=== PATIENT | female | born 1950 | race Caucasian/White ===

== ENCOUNTER → 2016-09-10 | Outpatient (CLI) | payer MEDICARE, OTHER ==
[~2016-09-10] MED LIST: ACETAMINOPHEN PO; ACETAMINOPHEN650 M1 PO; ADULTS' DAILY1 EACH PO; ALPRAZOLAM PO; ALPRAZOLAM0.25 MG PO; ALPRAZOLAM0.5 MG PO; AMIODARONE PO; AMLODIPINE BESY10 MG PO; ANEXSIA 7.5/3251 TA1 PO; ASCORBIC ACID500 M2 PO; ASPIRIN; ASPIRIN81 M1 PO; ASPIRIN81 M2 PO; ASPIRIN81 MG PO; AUGMENTIN PO; BACTRIM DS TABL1 TA1 PO; BACTROBAN22 GM TP; BAYER CHEWABLE81 MG PO; BENICAR PO; BENZONATATE; BENZONATATE PO; BENZONATATE200 MG PO; BISACODYL10 MG/SUP3 RC; BRILINTA90 MG PO; BUMETANIDE1 MG PO; BUMEX1 MG PO; BUMEX2 MG PO; CARVEDILOL12.5 MG PO; CITRUCEL500 MG PO; CLOPIDOGREL75 MG PO; COLACE PO; COMBIVENT U/D3 M1 INH; CORDARONE200 M1 PO; COREG PO; COREG12.5 MG PO; COREG3.125 MG PO; CORTISPORIN-TC10 ML OT; COUGH SYRU100 MG/5 M PO; COUMADIN PO; COUMADIN5 MG PO; COZAAR PO; COZAAR100 MG PO; DIFLUCAN PO; DOXYCYCLINE HY100 M1 PO; EFFEXOR37.5 MG PO; EFFEXOR75 M2 PO; ELIQUIS2.5 MG PO; FERROUS SULFATE PO; FLEXERIL10 M1 PO; FLOMAX0.4 M1 DOB; FLOMAX0.4 M1 PO; FLUCONAZOLE150 M1 PO; FUROSEMIDE40 MG PO; GLUCOTROL PO; GLYBURIDE PO; GLYNASE PO; HUMULIN 70/30 PE3 ML SUBQ; HUMULIN 70/30 V10 ML SUBQ; HUMULIN 70100 UNIT/1 SQ; HUMULIN 70100 UNIT/1 SUBQ; HUMULIN 70100 UNITS/ SQ; HUMULIN 70100 UNITS/ SUBQ; HYDRALAZINE HCL25 MG PO; HYDRALAZINE HCL50 MG PO; HYDROCODON-ACE1 EAC1 PO; HYDROCODON-ACE1 EAC5 PO; HYDROCODON-ACE1 EAC7 PO; HYDROCODON-ACE1 EAC9 PO; HYDROCODONE/APA1 T16 PO; IBUPROFEN800 MG PO; IMDUR-ER30 M1 PO; IMDUR-ER60 M1 PO; IMDUR-ER60 M3 PO; IMDUR-ER60 MG PO; INVANZ1 G/VIA1 IV; ISORDIL10 MG PO; ISOSORBIDE DINI10 MG PO; K-DUR20 ME1 PO; KEFLEX500 MG PO; LACTAID3000 UNI1 PO; LANTUS100 U/M1 SQ; LANTUS100 U/ML SUBQ; LASIX; LASIX PO; LASIX20 MG PO; LEVAQUIN250 MG PO; LEVEMIR SUBQ; LEVEMIR100 UNITS/ SUBQ; LIDODERM30 EA TOP; LIPITOR PO; LIPITOR20 MG PO; LIPITOR40 MG PO; LISINOPRIL; LISINOPRIL-HCTZ1 T19 PO; LISINOPRIL10 MG PO; LISINOPRIL20 MG PO; LOPRESSOR PO; LORTAB 5/500 TA1 TA1 PO; LORTAB 7.51 TAB; LORTAB PO; LOSARTAN POTAS100 MG; LOVENOX SUBQ; MACROBID 100 M100 MG PO; MACROBID100 M1 PO; MACROBID100 MG PO; MAGIC MOUTH WASH PO; MEDI-MECLIZINE25 M1 PO; MERREM500 MG INJ; METOPROLOL SUCC25 MG PO; MICONAZOLE; MICRONASE2.5 MG PO; MICRONASE5 M1 PO; MILK OF MAGNESIA PO; MIRAPEX PO; MIRAPEX0.125 MG PO; MULTI-DAY VITAM1 TAB PO; MYCOSTATIN POWD30 GM EXT; NEURONTIN; NEURONTIN100 MG PO; NITROBID PO; NITROGLYGERIN0.4 MG; NITROGLYGERIN0.4 MG SL; NORCO 10-325 TA1 TAB PO; NORVASC PO; NORVASC10 MG PO; NOVOLIN 70100 UNITS/ INJ; NOVOLIN 70100 UNITS/ SUBQ; NOVOLOG100 U/ML; NOVOLOG100 U/ML SUBQ; NOVOLOG100 UNITS/ SUBQ; NOVOLOG7030 SUBQ; NYSTATIN CREAM TOP; OMNICEF250 MG/5 M PO; OMNICEF300 MG PO; PAIN RELIEF650 MG PO; PANTOPRAZOLE SO40 MG PO; PEPCID AC20 M2 PO; PERCOCET PO; PHENERGAN; PHENERGAN12.5 MG; PHENERGAN25 MG PO; PHOSLO667 M1 PO; PLAVIX PO; PRAVACHOL20 MG PO; PREDNISONE PO; PRILOSEC40 MG PO; PROTONIX PO; PROTONIX20 MG PO; PYRIDIUM100 MG PO; RANEXA1000 MG PO; RANEXA500 MG PO; RENEXA; RISPERDAL0.5 M1 PO; RISPERIDONE PO; RITALIN10 MG PO; ROBAXIN500 MG PO; SKELAXIN PO; SOD BICARBONATE PO; SYMBICORT 160/4.6 GM INH; SYMBICORT INH; TESSALON PERLE100 M1 PO; TOPROL XL; TOPROL XL PO; TYLENOL325 M1 PO; UREA TP; VICODIN 5-3001 EACH PO; VICODIN 5/1 TAB 5/50 PO; VICODIN 5/500 T1 TAB PO; VICODIN HP 10-1 EACH PO; VICODIN PO; VITAMIN D1000 UNI2 PO; VITAMIN D250000 UNIT PO; VOLTAREN50 MG PO; VOLTAREN75 MG PO; XANAX0.5 M1 DOB; XANAX0.5 M1 PO; XANAX0.5 MG PO; ZESTRIL10 MG PO; ZOCOR20 MG PO; ZOFRAN ODT4 MG; ZOFRAN ODT4 MG PO; ZOFRAN PO; ZOFRANODT PO; ZOVIRAX800 MG PO; ZYVOX600 MG PO; [UNRECOGNIZED DRUG - CODE] PO; [UNRECOGNIZED DRUG - OTHER] TP
[2016-09-10 13:30] LABS: HEMATOCRIT 30.3 % (35.0-45.0); HEMOGLOBIN 9.7 gm/dL (12.0-16.0); MEAN CELL VOLUME 83.5 FL (83-96); MEAN CORPUSCULAR HEMOGLOBIN 26.7 PG (28-34); MEAN PLATELET VOLUME 7.8 FL (6.5-11.5); RED BLOOD COUNT 3.63 X10e (3.90-5.30); RED CELL DISTRIBUTION WIDTH 16.2 % (11.0-15.5); WHITE BLOOD COUNT 3.7 X10e3 (4.0-10.5)
[2016-09-10 13:46] LABS: CALCIUM SERUM 9.2 mg/dL (8.4-10.2); CREATININE SERUM 3.5 mg/dL (0.6-1.4); GLOM FILT RATE Estimated 12.9 mL/min (>60); POTASSIUM 4.5 mmol/L (3.5-5.1)
== END | disposition home or self-care (01) ==
LOC: SLAB 12:57
PROVIDERS: Surgery Vascular Surgery
DX: N18.3 Chronic kidney disease, stage 3 (moderate) (principal)
CPT/HCPCS: 36415; 80048; 85027; 85730

== ENCOUNTER 2016-09-17 05:44 | Inpatient (IN) | payer OTHER ==
--- NOTE | ~2016-09-17 | DS ---
Unit #: [id number] #: [id number] Patient: MICHELLE DUNHAM [id number] [facility]. [place], [place] [address] [id number] I MR#: [id number] NAME: MICHELLE DUNHAM ROOM: 469 Age: 65 Sex: F Admission Date: 09/17/2016 : 1950 Discharge Date: Attending Physician: Chidi Acosta M.D. Referring Physician: Jorge Luis Gooden M.D. Primary Care Physician: Kaiser Veliz M.D. DISCHARGE SUMMARY ADDENDUM Kindly note there is a discharge summary dictated by Dr. Craig Barton on the of this month and this is an addendum to the discharge summary. FINAL DIAGNOSES In addition to the final diagnoses: 1. Status post cardiopulmonary arrest, possibly secondary to protamine reaction. 2. Status post (1) filter placement in the right upper extremity. 3. Acute gouty arthritis involving the right knee. 4. Musculoskeletal chest pain. 5. Congestive heart failure, systolic. 6. Anemia. 7. End stage renal disease on hemodialysis. She (2) to have done the hemodialysis. PROCEDURES DONE Status post Shiley catheter placement for hemodialysis, status post AV fistula placement. CONSULTANTS 1. Dr. Peña. 2. Dr. Jorge Luis Gooden. 3. Dr. Fortino Sun. 4. Dr. Delgado. 5. Dr. Cameron Briceño. HOSPITAL COURSE Please note, this is an addendum to the discharge summary. In these last few days, patient complained of pain in the right knee. She was seen by orthopedic services. They recommended no further intervention and she was started empirically on steroids and consequently her pain improved. She started on Uloric acid and, clinically, the pain has improved. She got hemodialysis done. She got a Shiley catheter placed and she was dialyzed. Dr. Peña saw patient for renal issues. She also had an outpatient hemodialysis appointment sent up. She will be discharged home with home health care. She is instructed to follow up with vascular surgery, renal, and primary care as an outpatient. She also complains of having swelling in her right arm since the surgery done. Requested her to keep her right arm elevated. PHYSICAL EXAMINATION On the day of the discharge: Unit #: [id number] #: [id number] Patient: MICHELLE DUNHAM VITAL SIGNS: Temperature 98.5, pulse rate 60, respirations 18, and blood pressure 132/57. GENERAL APPEARANCE: Patient is alert, oriented x3, and lying in the bed. No respiratory distress. HEENT: Normocephalic and atraumatic. No icterus. PERRLA. Extraocular movements intact. NECK: Supple. No JVD. HEART: S1 and S2 regular rate and rhythm. CHEST: Bilateral equal air entry. Clear to auscultation. ABDOMEN: Soft and nontender. EXTREMITIES: Right below-knee amputation. Right arm has 1+ edema. DISCHARGE MEDICATIONS Her discharge medications include: 1. Lipitor 20 mg daily. 2. Insulin 70/30 twenty units twice a day. 3. Pepcid 20 mg daily. 4. Hydrocodone/Tylenol 10/325 one tablet p.o. q.4-6 p.r.n. for pain. 5. Symbicort 160/4.5 mcg 2 puffs twice a day. 6. Flomax 0.4 mg daily. 7. Amiodarone 200 mg daily. 8. Eliquis 2.5 mg twice a day. 9. Xanax 0.5 mg p.o. p.r.n. for anxiety. Kindly note I am not giving any new prescription. 10. Coreg 12.5 mg twice a day. 11. PhosLo 667 mg p.o. 3 times a day. 12. Imdur 10 mg p.o. twice a day. 13. Uloric acid 40 mg p.o. daily. DISCHARGE INSTRUCTIONS Patient is instructed to follow up with primary care and with cardiology in 1-2 weeks. TOTAL TIME SPENT ON THE DISCHARGE Thirty-five minutes. Dictated by... Chidi Acosta M.D. TITA/kofi TD: 09/28/2016 06:21 JOB #: [id number] DISCHARGE SUMMARY Page 1 of 1 X X DISCHARGE SUMMARY
--- NOTE | ~2016-09-17 | CR72 ---
[facility] A Service of [facility] RADIOLOGY TEXT RESULTS PATIENT: MICHELLE DUNHAM LOCATION: [place] [id number] : [birth year] UNIT #: [id number] AGE: [address]: Pilar Barton MD SEX: F ORDER DR: [id number] [facility] [address] [place], [place] [address] [id number] I MR#: [id number] Acc #: [id number] NAME: MICHELLE DUNHAM : 1950 SEX: F STUDY DATE/TIME: 09/18/2016 4:28 UNIT: [facility] ROOM: [facility] STUDY DESCRIPTION: CR Chest Single View Portable Attending Physician: Jorge Luis Gooden M.D. Referring Physician: Jorge Luis Gooden M.D. Ordering Physician: Analisa Delgado M.D. Primary Care Physician: Kaiser Veliz M.D. MEDICAL IMAGING REPORT This report is preliminary unless electronic signature is present EXAM Portable chest INDICATIONS Respiratory failure follow up. PROCEDURE Frontal view chest. COMPARISON 09/17/2016 FINDINGS The ET tube is stable. No new dense opacity. No pneumothorax. IMPRESSION Stable. Dictated by... Jeronimo Santana M.D. THIS IS AN ELECTRONICALLY VERIFIED REPORT Jeronimo Santana M.D. at 09/18/2016 10:24 PM DEVIKA/ted TD: 09/18/2016 06:19 JOB #: [id number] MEDICAL IMAGING REPORT Page 1 of 1 COPY
--- NOTE | ~2016-09-17 | CR71 ---
[facility] A Service of [facility] RADIOLOGY TEXT RESULTS PATIENT: MICHELLE DUNHAM LOCATION: [facility] 468 : [birth year] UNIT #: [id number] AGE: [address]: Chidi Acosta MD SEX: F ORDER DR: [id number] [facility] [address] [facility] [place] [facility]. [place], [place] [address] [id number] I MR#: [id number] Acc #: [id number] NAME: MICHELLE DUNHAM : 1950 SEX: F STUDY DATE/TIME: 09/25/2016 9:53 UNIT: [facility] ROOM: [facility] STUDY DESCRIPTION: CR Chest Single View Attending Physician: Chidi Acosta M.D. Referring Physician: Jorge Luis Gooden M.D. Ordering Physician: Manuel Rausch M.D. Primary Care Physician: Kaiser Veliz M.D. MEDICAL IMAGING REPORT This report is preliminary unless electronic signature is present EXAM AP portable chest. DATE 09/25/2016 at 0953 HISTORY 65-year-old female status post tunneled catheter placement today. Shortness of breath today. COMPARISON AP portable chest, 09/21/2016. FINDINGS Low volume inspiration. Bibasilar airspace disease not thought to be significant changed. Stable cardiomegaly with central vascular congestion. Right IJ approach tunneled catheter distal tip extends to the right atrial level. No pneumothorax is visible. Left chest wall pacemaker leads appear unchanged. Degenerative changes in the lumbar spine. IMPRESSION 1. Right IJ approach tunneled catheter placement with the tip projecting to the right atrial level. No visible pneumothorax. 2. Bibasilar atelectasis or infiltrates, cardiomegaly and central vascular congestion, without significant change from 09/21/2016. Dictated by... Ligia Capone M.D. THIS IS AN ELECTRONICALLY VERIFIED REPORT [facility] A Service of [facility] RADIOLOGY TEXT RESULTS PATIENT: MICHELLE DUNHAM LOCATION: [facility] 468 : [birth year] UNIT #: [id number] AGE: [address]: Chidi Acosta MD SEX: F ORDER DR: Ligia Capone M.D. at 09/26/2016 7:03 AM STEVENSON/rosi TD: 09/25/2016 12:29 JOB #: [id number] MEDICAL IMAGING REPORT Page 1 of 1 COPY
--- NOTE | ~2016-09-17 | EKG ---
PATIENT: MICHELLE DUNHAM UNIT #: [id number] Ventricular Rate: 63 BPM Atrial Rate: 63 BPM P-R Interval: 220 ms QRS Duration: 106 ms Q-T Interval: 474 ms QTC Calculation(Bezet): 485 ms P [place]: 49 degrees Calculated R [place]: 15 degrees Calculated T [place]: 44 degrees Diagnosis Line: Sinus rhythm with 1st degree A-V block Diagnosis Line: Lateral infarct (cited on or before 24-MAR-2016) Diagnosis Line: Abnormal ECG Diagnosis Line: When compared with ECG of 24-MAR-2016 05:48, Diagnosis Line: No significant change was found Diagnosis Line: Confirmed by CALVIN MCCLOUD MD ([id number]) on 09/17/2016 Diagnosis Line: 11:31:20 PM INTERPRETING MD: AME MARR
--- NOTE | ~2016-09-17 | DS ---
Unit #: [id number] #: [id number] Patient: MICHELLE DUNHAM Pilar Barton MD DISCHARGE SUMMARY
--- NOTE | ~2016-09-17 | CR208 ---
[facility] A Service of [facility] RADIOLOGY TEXT RESULTS PATIENT: MICHELLE DUNHAM LOCATION: [facility] 468-01 : [birth year] UNIT #: [id number] AGE: [address]: Chidi Acosta MD SEX: F ORDER DR: [id number] [facility] [address] [place], [place] [address] [id number] I MR#: [id number] Acc #: [id number] NAME: MICHELLE DUNHAM : 1950 SEX: F STUDY DATE/TIME: 09/22/2016 12:08 UNIT: [facility] ROOM: [facility] STUDY DESCRIPTION: CR Ribs Ar 3 Views Attending Physician: Pilar Barton M.D. Referring Physician: Jorge Luis Gooden M.D. Ordering Physician: Pilar Barton M.D. Primary Care Physician: Kaiser Veliz M.D. MEDICAL IMAGING REPORT This report is preliminary unless electronic signature is present EXAM Bilateral rib views dated 09/22/2016. COMPARISON Single view of the chest dated 09/21/2016. HISTORY Bilateral rib pain following injury on Friday. Patient had CPR done on her. FINDINGS Frontal view of the chest demonstrates mild linear subsegmental atelectasis/infiltrate at the junction of the left vzr-eg-qoqoa lung zone and in the left lower lung zone. Linear subsegmental atelectasis is noted extending from the right hilum laterally in the right midlung zone, stable. There is some prominence of interstitial markings in the lungs bilaterally. Stable. Pacemaker is in the left mid chest. There is stable mild cardiomediastinal silhouette enlargement suggestive of cardiomegaly/pericardial effusion. Bilateral 2 views of the ribs were obtained using 9 images. Somewhat technically limited while in some images the pacemaker and other extrinsic objects are overlying the ribs, limiting evaluation. In the visualized portions of the ribs, no obvious acute displaced fracture is seen. IMPRESSION 1. No significant interval change in the cardiopulmonary status when compared to the prior study. 2. The 2 views of bilateral ribs were obtained using various images. Given the overlying wires and pacemaker, evaluation of the underlying ribs is limited. Some of the images are also technically limited. After giving allowances to those, no obvious acute displaced fracture is discerned in the visualized portions. [facility] A Service of [facility] RADIOLOGY TEXT RESULTS PATIENT: MICHELLE DUNHAM LOCATION: [facility] [address] : [birth year] UNIT #: [id number] AGE: [address]: Chidi Acosta MD SEX: F ORDER DR: Dictated by... Fermin Nicole M.D. THIS IS AN ELECTRONICALLY VERIFIED REPORT Fermin Nicole M.D. at 09/23/2016 2:59 PM CPR/psc TD: 09/22/2016 17:05 JOB #: [id number] MEDICAL IMAGING REPORT Page 1 of 1 COPY
--- NOTE | ~2016-09-17 | A ---
[facility] Nutrition Therapy DATE: 09/27/16 Patient: MICHELLE COMBS Physician: DAVID Address: [address] [place] [address] ROAD Room/Bed: [address] [place] [address], Zip: [place] [address] Admit Date: 09/17/16 Date of : [birth year] Height: 5 9 Weight: 218 99 NUTRITIONAL ASSESSMENT: REASON: LOS 65 yo female admitted for CKD PMH: CAD, HTN, dyslipidemia, DM, COPD, peripheral vascular disease, s/p R below knee and L forefoot amputations Anthropometrics: Ht: 5'9" Wt: 99.1 kg (218#) BMI: 32.3 Labs: Gluc 126, BUN 71, Creat 3.6, Phos 6.8, GFR 12.5 Meds: Phoslo, Pepcid, Lipitor, Novolin, Zofran I/O & Bowel function: 1130/550, last BM 09/17 Skin Integrity: Abrasion (buttock), bruise (R hip, L thigh, back, BUE), amputations, closed surgical incision (RFA-fistula) Edema: R arm generalized Assessment: Chart reviewed, events noted. Pt received hemodialysis today. Pt reported a fair appetite, stating she didn't eat anything yesterday and ate ~35% of meals today. Pt unable to report any weight loss. RD international specialist provided written and verbal CKD diet education. RD international specialist discussed importance of adequate protein and calorie intake. Pt verbalized understanding. Pt agreed to Nepro shakes BID. Pt had no diet questions at this time. See recommendations below. Dx: Inadequate protein intake RT current clinical condition AEB consuming ~35% of meals. Intervention: 1. Diet education 2. Nepro shakes BID 3. Renal diet 4. MVI Monitoring, Evaluation and Goals: 1. PO intake; consume >75% of meals and supplements 2. Labs; WNL 3. Skin; promote healing 4. GI; promote regular GI function [facility] Nutrition Therapy DATE: 09/27/16 Patient: MICHELLE COMBS Physician: DAVID Address: [address] [place] [address] ROAD Room/Bed: [address] [place] [address], Zip: [place] [address] Admit Date: 09/17/16 Date of : [birth year] Height: 5 9 Weight: 218 99 Recommendations: 1. Please order vanilla Nepro BID w/ meals. 2. Encourage adequate protein/calorie intake and compliance to renal diet. 3. Add multivitamin to pt's current medication regimen to promote skin healing. 4. Optimize pt's bowel regimen d/t pt's last BM 09/17. Pt is at a mild nutritional risk. RD will f/u per protocol. Respectfully, Valentine Emery, Cutting Table Operator Mauro Kat MS, RD, LD Mauro Kat MS, RD, LD [facility] cc: client file
--- NOTE | ~2016-09-17 | OR ---
Unit #: [id number] #: [id number] Patient: MICHELLE DUNHAM [id number] [place], [place] [address] [id number] I MR#: [id number] NAME: MICHELLE DUNHAM ROOM: 468 Date of Procedure: 09/25/2016 Admission Date: 09/17/2016 Surgeon: Manuel Rausch M.D. : 1950 Attending Physician: Chidi Acosta M.D. Referring Physician: Jorge Luis Gooden M.D. Primary Care Physician: Kaiser Veliz M.D. OPERATIVE REPORT PREOPERATIVE DIAGNOSIS Worsening chronic renal failure, requiring dialysis. POSTOPERATIVE DIAGNOSIS Worsening chronic renal failure, requiring dialysis. PROCEDURES PERFORMED 1. Ultrasound-guided cannulation, right internal jugular vein. 2. Placement of right internal jugular vein 27 cm NextStep tunneled dialysis catheter with fluoroscopy. ANESTHESIA MAC. COMPLICATIONS None. ESTIMATED BLOOD LOSS 5 mL. INDICATIONS FOR PROCEDURE The patient is a 65-year-old female with a history of chronic renal failure, who has immature right arm fistula, not yet ready for dialysis access. She is recommended placement of a tunneled dialysis catheter and was told of the planned procedure including the risks, benefits, complications, and alternatives, and she does wish to proceed. DESCRIPTION OF PROCEDURE The patient was taken to the operating room, placed on the operating table in supine position. Following MAC anesthesia, the patient's bilateral neck and chest wall were prepped and draped in normal standard manner. Using ultrasound, the right internal jugular vein was identified and 1% lidocaine was infused over the vein. Under ultrasound guidance, the vein was cannulated with the access needle and a starter wire was then passed into the inferior vena cava and confirmed on fluoroscopy. A stab incision was created at the wire exit site. The tract was serially dilated with the final sheath dilator being placed. A 27 cm NextStep tunneled dialysis catheter was then placed with its tip positioned to the SVC-atrial junction confirmed on fluoroscopy. The proposed tunnel tract was identified and anesthetized with lidocaine. A stab incision was created in the right chest wall and a curved metal tunneler was then passed and the catheter was brought subcutaneously. The catheter was cut to length Unit #: [id number] #: [id number] Patient: DUNHAM,MICHELLE and the Y-adapter was applied and secured. Inflow and outflow ports were aspirated and flushed easily and then heparin locked with concentrated heparin. The catheter was secured to the chest wall with 3-0 nylon suture and the base of the right neck incision was closed with interrupted subcuticular 4-0 Monocryl suture. The incisions were washed and dressings were applied. The procedure was terminated. The patient tolerated the procedure well and was taken to the recovery room in stable condition. All needle, sponge, and instrument counts were correct at the end of the case. Dictated by... Jesse Munoz/debra TD: 09/25/2016 22:37 JOB #: [id number] OPERATIVE REPORT Page 1 of 1 X Manuel Rausch MD X PROCEDURE OPERATIVE NOTE
--- NOTE | ~2016-09-17 | CO ---
Unit #: [id number] #: [id number] Patient: PATRICIA DUNHAM [id number] [facility]. [place], [place] [address] [id number] I MR#: [id number] NAME: PATRICIA DUNHAM ROOM: [facility] Age: 65 Sex: F Admission Date: 09/17/2016 : 1950 Attending Physician: Pilar Barton M.D. Primary Care Physician: Kaiser Veliz M.D. Consultation Date: 09/17/2016 CONSULTATION REPORT REASON FOR CONSULT Renal insufficiency. HISTORY Thank you very much for asking us to see this patient in consultation. Ms. Patricia Dunham is a 65-year-old female with history of chronic kidney disease stage 4 with baseline creatinine around 3 or so who I see in the office, as well as intermittent hospitalizations. She underwent a right arm AV fistula and apparently had been reversed with protamine, arrested and had an allergic reaction, subsequently intubated and now the vent in the ICU. We were asked to see the patient for renal insufficiency. The patient currently has decreased responsiveness. Orally intubated. PAST MEDICAL HISTORY 1. History of chronic kidney disease stage 4. 2. History of atherosclerotic coronary artery disease status post stents. 3. History of congestive heart failure. 4. History of atrial fibrillation in the past. 5. History of mitral regurgitation. 6. History of COPD. 7. History of pulmonary hypertension. 8. History of diabetes mellitus. 9. History of DVT and PE in the past. 10. History of gastritis. 11. History of right BKA and left foot amputation. ALLERGIES Multiple drug allergies. See list in the computer. FAMILY HISTORY Positive for heart disease. Negative for kidney disease. SOCIAL HISTORY She is a previous smoker; none now. No alcohol. MEDICATIONS 1. Inhalers. 2. Bumex 1 mg t.i.d. 3. PhosLo t.i.d. with meals. 4. Pepcid 20 mg b.i.d. 5. Tylenol 3. 6. Lipitor. 7. Xanax. Unit #: [id number] #: [id number] Patient: PATRICIA DUNHAM 8. Isosorbide. 9. Eliquis. 10. Coreg 12.5 mg b.i.d. REVIEW OF SYSTEMS Unable to obtain. PHYSICAL EXAMINATION GENERAL: Again, she has decreased responsiveness now. She is orally intubated. VITAL SIGNS: Her temperature is 98, pulse 64-65, blood pressure 156 to 170/60 to 70. HEENT: Her pupils are reactive to light. NECK: Her neck is supple. CARDIAC: She appears to have a regular rhythm without a rub. No S3 or S4. LUNGS: Her lungs sound fairly clear bilaterally. No wheezes, rhonchi or rales. ABDOMEN: Overweight. Bowel sounds are positive. Nontender, soft. EXTREMITIES: She has, again, partial foot amputation on her left. She has a right AKA, and she has a new fistula in her right arm, which is bandaged. SKIN: No rashes. NEUROLOGIC: Again, decreased responsiveness. : Pérez catheter is in place with urine. DIAGNOSTIC STUDIES LABORATORY DATA: ABGs show pH of 7.339, pCO2 of 47, pO2 78 on 60%. Sodium is 138, potassium 4.2, chloride 105, bicarb 20, BUN 68, creatinine 3, glucose 164, calcium 9.1, magnesium 2.3. CPK is 139. BNP is 639. Hemoglobin is 10, white count 5,600, platelets 179,000. IMAGING: Chest x-ray showed questionable atelectasis versus small left lower lobe infiltrate. ASSESSMENT AND PLAN 1. Chronic kidney disease stage 4. Best I can remember, I do not think she is on dialysis. I do not see any line for dialysis either, so I assume she is not. Will reevaluate this. Her volume status shows she has some mild edema in her lower extremity on the right but, again, with pulmonary hypertension, etc. Will see how urine output does over the next 24 hours and see where her renal function goes. She does not have any (1) acidosis or hyperkalemia. Will check labs in the morning. Will continue to follow. Will check a UA, culture and sensitivity. 2. Status post arrest from "ProAmatine," now intubated. 3. History of heart disease, as mentioned above. 4. History of COPD. 5. History of diabetes. 6. History of DVT and PE in the past. 7. History of gastritis, but I am going to change her PPI over to Pepcid due to risks with renal disease. Thank you very much. Dictated byJaiden Peña M.D. Unit #: [id number] #: [id number] Patient: PATRICIA DUNHAM ANA LILIA/homer TD: 09/18/2016 08:41 JOB #: [id number] CONSULTATION REPORT Page 1 of 1 X Ellie Peña MD CONSULTATION REPORT
--- NOTE | ~2016-09-17 | CO ---
Unit #: [id number] #: [id number] Patient: MICHELLE DUNHAM [id number] [address] [place], [place] [address] [id number] I MR#: [id number] NAME: MICHELLE DUNHAM ROOM: [facility] Age: 65 Sex: F Admission Date: 09/17/2016 : 1950 Attending Physician: Jorge Luis Gooden M.D. Primary Care Physician: Kaiser Veliz M.D. CONSULTATION REPORT REASON FOR CONSULTATION Critical care management. HISTORY OF PRESENT ILLNESS A 65-year-old female who has a past medical history of coronary artery disease, hypertension, COPD, dyslipidemia, chronic renal insufficiency, history of PE, DVT, paroxysmal atrial fibrillation, insulin-dependent diabetes, peripheral vascular disease, permanent pacemaker placement, chronic kidney disease, underwent a fistula repair and coded after the procedure and currently on a ventilator. I am seeing the patient at the bedside, currently intubated, sedated. REVIEW OF SYSTEMS Unobtainable. PAST MEDICAL HISTORY As described above. PAST SURGICAL HISTORY 1. Cardiac cath. 2. Hand surgery. 3. Carpal tunnel surgery. 4. Left foot surgery. 5. Right below knee amputation. ALLERGIES Multiple allergies noted. SOCIAL HISTORY Ex-smoker, no alcohol, no drug abuse. FAMILY HISTORY None as per record. MEDICATION Medication as per MAR has been reviewed. PHYSICAL EXAMINATION VITAL SIGNS: Temperature 98. Pulse 87. Respiration 12. Blood pressure 130/70. NEUROLOGICAL: Awake, alert and oriented. No neuro deficit. HEENT: PERRLA. EOMI. NECK: Supple. No JVD. Unit #: [id number] #: [id number] Patient: MICHELLE DUNHAM CHEST: Bilateral air entry. Bilateral mild rhonchi. GI: Nontender, soft. Bowel sounds positive. EXTREMITIES: No edema. DIAGNOSTIC STUDIES LABORATORY: Labs have been reviewed. IMAGING: Imaging has been reviewed. ASSESSMENT 1. Acute hypoxic respiratory failure. 2. Status post cardiac arrest. 3. Pulmonary edema, likely drug reaction. 4. End-stage renal disease. 5. Diabetes mellitus. 6. Atrial fibrillation. 7. Pacemaker placement. 8. Gastroesophageal reflux disease. PLAN Plan is to continue ventilator support, order troponin, 2D echo and diuretics as per Nephrology, GI and DVT prophylaxis, IV steroid and bronchodilator and patient will be closely monitored. Please see orders for detailed plan. Total critical care time is 65 minutes in direct critical care of this patient. Dictated by... Jesse Foster/catherine TD: 09/17/2016 22:05 JOB #: [id number] CONSULTATION REPORT Page 1 of 1 X Analisa Delgado MD X CONSULTATION REPORT
--- NOTE | ~2016-09-17 | CR71 ---
[facility] A Service of [facility] RADIOLOGY TEXT RESULTS PATIENT: MICHELLE DUNHAM LOCATION: [facility] 468-01 : [birth year] UNIT #: [id number] AGE: [address]: Chidi Acosta MD SEX: F ORDER DR: [id number] [facility] [address] [place], [place] [address] [id number] I MR#: [id number] Acc #: [id number] NAME: MICHELLE DUNHAM : 1950 SEX: F STUDY DATE/TIME: 09/21/2016 4:46 UNIT: [facility] ROOM: [facility] STUDY DESCRIPTION: CR Chest Single View Attending Physician: Pilar Barton M.D. Referring Physician: Jorge Luis Gooden M.D. Ordering Physician: Vanita Ngo M.D. Primary Care Physician: Kaiser Veliz M.D. MEDICAL IMAGING REPORT This report is preliminary unless electronic signature is present EXAM Single view of the chest dated 09/21/2016 at 0446 hours. COMPARISON Single view of the chest dated 09/18/2016. HISTORY Status post resuscitated arrest and vent placement on 09/17/2016. History of CVA, CHF, a-fib. History of PE and DVT. FINDINGS Frontal view of the chest was obtained. The endotracheal tube has been removed in the interval. Pacemaker is again seen. This is a poor inspiratory film with enlargement of the cardiomediastinal silhouette and prominence of the interstitial markings. It could be related to poor inspiration or mild congestion. No obvious pleural effusion or pneumothorax could be identified. Dictated by... Fermin Nicole M.D. THIS IS AN ELECTRONICALLY VERIFIED REPORT Fermin Nicole M.D. at 09/23/2016 1:46 PM CPR/tmw TD: 09/21/2016 12:31 JOB #: [id number] MEDICAL IMAGING REPORT Page 1 of 1 COPY
--- NOTE | ~2016-09-17 | OR ---
Unit #: [id number] #: [id number] Patient: MICHELLE DUNHAM [id number] [facility]. [place], [place] [address] [id number] I MR#: [id number] NAME: MICHELLE DUNHAM ROOM: [facility] Date of Procedure: 09/17/2016 Admission Date: 09/17/2016 Surgeon: Jorge Luis Gooden M.D. : 1950 Attending Physician: Pilar Barton M.D. Referring Physician: Jorge Luis Gooden M.D. Primary Care Physician: Kaiser Veliz M.D. OPERATIVE REPORT PREOPERATIVE DIAGNOSIS Chronic kidney disease. POSTOPERATIVE DIAGNOSIS Chronic kidney disease. PROCEDURE PERFORMED Placement of right brachiocephalic fistula. [employer] Dominick Marquez CSA. ANESTHESIA Supraclavicular block supplemented with 1% Xylocaine local. ESTIMATED BLOOD LOSS 20 mL. COMPLICATIONS Cardiac arrest at the end of the procedure. INDICATIONS FOR PROCEDURE The patient is a 65-year-old white female with chronic kidney disease, who is anticipated to require hemodialysis. She has a pacemaker on the left side. Preoperative vein mapping suggested that she had an adequate cephalic vein in her right arm which could be used as a fistula. She was taken to the operating room to undergo elective creation of long-term dialysis access. DESCRIPTION OF PROCEDURE The patient was placed in supine position with her right arm abducted on an arm board. The block was tested and did not appear to be fully effective. 1% Xylocaine was used to infiltrate the skin and subcutaneous tissue distal to the antecubital crease. A transverse incision was made distal to the antecubital crease. Dissection continued through the subcutaneous tissue to identify the cephalic vein. Cephalic vein was dissected free circumferentially for about 3 cm. The vein was dissected free down to a junction with the antecubital vein. The antecubital vein was doubly ligated with 2-0 silk ties proximally and distally. The antecubital vein was then resected leaving a small segment of vein on the end of the cephalic vein. The antecubital vein was opened longitudinally to create a small cuff on the end of the cephalic vein. The cephalic vein Unit #: [id number] #: [id number] Patient: DUNHAM,MICHELLE was flushed with heparinized saline and it appeared to be adequate for use as a fistula. Additional 1% Xylocaine was used to infiltrate the subfascial space adjacent to the brachial artery. The fascia was incised and the brachial artery was exposed. The brachial artery was dissected free circumferentially for about 2 cm. The patient was given heparin 10,000 units intravenously, which was allowed to circulate. Small vascular clamps were placed proximally and distally on the brachial artery. An 11-blade was used to make a longitudinal incision on the brachial artery which was extended proximally and distally with Pérez scissors. The end of the cephalic vein was sewn to the side of the brachial artery using running 6-0 Prolene circumferentially. Prior to completion of the anastomosis, blood was flushed retrograde and antegrade. Following completion of the anastomosis, there was an easily palpable thrill in the fistula as well as a palpable radial pulse. The patient was given protamine 50 mg intravenously to reverse the anticoagulation. The subcutaneous tissue was closed using running 3-0 Vicryl. The skin was closed using running 4-0 Vicryl subcuticular sutures. As the wound was being closed, the patient became unresponsive and went into asystole. Cardiac compressions were immediately instituted and the patient was intubated. After a brief period, the patient's cardiac rhythm returned and her blood pressure returned. Sterile dressings were applied to the wound. Sponge and needle count were correct. The patient was taken to the postanesthesia care unit intubated for further assessment. Dictated by... Jesse Nunn/debra TD: 09/18/2016 01:09 JOB #: [id number] CC: Sujey Peña M.D. OPERATIVE REPORT Page 1 of 1 X Jorge Luis Gooden MD X PROCEDURE OPERATIVE NOTE
--- NOTE | ~2016-09-17 | CR71 ---
[facility] A Service of [facility] & [facility] RADIOLOGY TEXT RESULTS PATIENT: MICHELLE DUNHAM [facility] [birth year] UNIT #: [id number] AGE: [address]: Pilar Barton MD SEX: F ORDER DR: [id number] [facility] [address] [place], [place] [address] [id number] I MR#: [id number] Acc #: [id number] NAME: MICHELLE DUNHAM : 1950 SEX: F STUDY DATE/TIME: 09/17/2016 10:20 UNIT: [facility]AC[facility]OF ROOM: STUDY DESCRIPTION: CR Chest Single View Attending Physician: Jorge Luis Gooden M.D. Referring Physician: Jorge Luis Gooden M.D. Ordering Physician: Jorge Luis Gooden M.D. Primary Care Physician: Kaiser Veliz M.D. MEDICAL IMAGING REPORT This report is preliminary unless electronic signature is present EXAM Portable chest, 09/17/2016. HISTORY Postop right brachiocephalic fistula placement today. Patient coded in OR. CPR was administrated. Patient intubated, respiratory failure. FINDINGS The cardiac and mediastinal structures are stable compared with 03/23/2016. Cardiac pacemaker is unchanged. Endotracheal tube has been inserted with the tip approximately 3 cm above the oscar. There is poor inspiratory result with infiltrate or atelectasis in the left lower lobe and discoid atelectasis at the right base. The upper lungs are clear. There are no pleural effusions. IMPRESSION 1. Endotracheal tube tip is 3 cm above the oscar. Cardiac pacemaker unchanged compared with 03/23/2016. Cardiac silhouette is stable. 2. Poor inspiratory result with infiltrate or atelectasis in the left lower lobe. Discoid atelectasis right base. STAT * RESULT Dictated by... Cameron Loza M.D. THIS IS AN ELECTRONICALLY VERIFIED REPORT Cameron Loza M.D. at 09/18/2016 8:26 AM KRT/rosi TD: 09/17/2016 10:33 [facility] A Service of [facility] & [facility] RADIOLOGY TEXT RESULTS PATIENT: MICHELLE DUNHAM LOCATION: [address] : [birth year] UNIT #: [id number] AGE: [address]: Pilar Barton MD SEX: F ORDER DR: JOB #: [id number] MEDICAL IMAGING REPORT Page 1 of 1 COPY
--- NOTE | ~2016-09-17 | CR169 ---
[facility] A Service of [facility] RADIOLOGY TEXT RESULTS PATIENT: MICHELLE DUNHAM LOCATION: [facility] 468-01 : [birth year] UNIT #: [id number] AGE: [address]: Pilar Barton MD SEX: F ORDER DR: [id number] [facility] [address] [place], [place] [address] [id number] I MR#: [id number] Acc #: [id number] NAME: MICHELLE DUNHAM : 1950 SEX: F STUDY DATE/TIME: 09/20/2016 11:28 UNIT: [facility] ROOM: [facility] STUDY DESCRIPTION: CR Knee 2 Views Lt Attending Physician: Pilar Barton M.D. Referring Physician: Jorge Luis Gooden M.D. Ordering Physician: Jorge Luis Gooden M.D. Primary Care Physician: Kaiser Veliz M.D. MEDICAL IMAGING REPORT This report is preliminary unless electronic signature is present EXAM Left knee INDICATION Left knee pain. No known injury. FINDINGS 2 views of the left knee are compared to 12/01/2014. There is a small knee effusion. There is moderate degenerative changes with irregularity of the articular surface of the femoral condyles. There is also irregularity of the patellofemoral joint. IMPRESSION Moderate arthrosis of the left knee. Development of a small knee effusion. Dictated by... Jeffry Claudio M.D. THIS IS AN ELECTRONICALLY VERIFIED REPORT Jeffry Claudio M.D. at 09/20/2016 3:14 PM Patricia TD: 09/20/2016 14:31 JOB #: [id number] MEDICAL IMAGING REPORT Page 1 of 1 COPY
--- NOTE | ~2016-09-17 | CO ---
Unit #: [id number] #: [id number] Patient: MICHELLE DUNHAM [id number] [address] [id number] I MR#: [id number] NAME: MICHELLE DUNHAM ROOM: 468 Age: 65 Sex: F Admission Date: 09/17/2016 : 1950 Attending Physician: Pilar Barton M.D. Primary Care Physician: Kaiser Veliz M.D. Consultation Date: 09/20/2016 CONSULTATION REPORT CHIEF COMPLAINT Left knee pain. HISTORY OF PRESENT ILLNESS Ms. Dunham is a 65-year-old female, who has been admitted after an AV fistula under which she underwent a cardiopulmonary resuscitation for PEA after protamine administration. She now is stable on the orthopedic floor complaining of pain with range of motion of her left knee and inability to bear full weight on the left lower extremity. She reports swelling about her left knee. Orthopedic consultation has been requested. PAST MEDICAL HISTORY 1. Coronary artery disease, status post myocardial infarction. 2. Hypertension. 3. Hyperlipidemia. 4. Diastolic heart failure. 5. Paroxysmal atrial fibrillation. 6. Sick sinus syndrome. 7. Chronic renal insufficiency. 8. Peripheral vascular disease. 9. History of DVT. 10. Pulmonary embolism. 11. History of tobacco abuse. PAST SURGICAL HISTORY 1. Percutaneous coronary intervention with stent placement. 2. Pacemaker placement. 3. Right below-knee amputation. 4. Left transmetatarsal amputation. 5. Carpal tunnel release. 6. Cholecystectomy. 7. Tubal ligation. 8. AV fistula formation. HOME MEDICATIONS 1. Xanax. 2. Isordil. 3. Eliquis. 4. Carvedilol. 5. Amiodarone. 6. Flomax. 7. Symbicort. 8. Humulin. 9. Bumex. Unit #: [id number] #: [id number] Patient: MICHELLE DUNHAM 10. Phos-Lo. 11. Pepcid. 12. Crosby. 13. Lipitor. ALLERGIES Oxycodone, Talwin, Cipro, sulfa, lisinopril, codeine, Darvocet, Macrobid, Demerol, Phenergan, amphetamine, pentazocine. FAMILY HISTORY Coronary artery disease. SOCIAL HISTORY The patient had some history of tobacco use, three packs per day. She has no current tobacco use. She has no alcohol or drug use. She is not working. REVIEW OF SYSTEMS Ten systems are reviewed and negative except as noted in the HPI. PHYSICAL EXAMINATION GENERAL: A 65-year-old female in no acute distress. PSYCHIATRIC: Awake, alert, and oriented to person, place, and time. CARDIAC: Regular rate currently. PULMONARY: No increased work of breathing. Symmetric chest rise. No wheezing. ABDOMEN: Obese, nondistended. NEUROLOGIC: Grossly intact motor function throughout. VASCULAR: Her hands are warm and well perfused. MUSCULOSKELETAL: Left knee is examined. There is a uzdud-bv-pvmppmkd knee joint effusion. It is mildly warm to touch. There is no overlying erythema or induration. Range of motion is limited from 10 to 60 degrees secondary to pain. DIAGNOSTIC STUDIES LABORATORY: Uric acid is elevated at greater than 9. IMAGING: Plain film radiographs reviewed of the left knee and reveal chronic degenerative changes. IMPRESSION A 65-year-old female with left knee pain, likely gouty arthropathy. PLAN We discussed an aspiration today which I think would be done primarily for symptomatic relief; however, she declines this. At this time, her exam is sufficiently benign that I do not feel that an aspiration is required to exclude septic arthritis. I would agree with steroids and colchicine as already ordered. Will follow her response to this initial treatment. If knee symptoms persist or worsen, then she will certainly require an aspiration to evaluate for the possibility of a septic joint but again I think this is unlikely based upon her current history, exam, and laboratory studies. Dictated by... Unit #: [id number] #: [id number] Patient: MICHELLE DUNHAM Cameron Briceño M.D. David/jay TD: 09/21/2016 09:09 JOB #: [id number] CONSULTATION REPORT Page 1 of 1 X Cameron Briceño MD CONSULTATION REPORT
--- NOTE | ~2016-09-17 | CO ---
Unit #: [id number] #: [id number] Patient: MICHELLE DUNHAM [id number] [facility] [address] [place], [place] [address] [id number] I MR#: [id number] NAME: MICHELLE DUNHAM ROOM: [facility] Age: 65 Sex: F Admission Date: 09/17/2016 : 1950 Attending Physician: Pilar Barton M.D. Primary Care Physician: Kaiser Veliz M.D. CONSULTATION REPORT REASON FOR CONSULTATION Status post resuscitated arrest. HISTORY OF PRESENT ILLNESS This is a 65-year-old white female who was well known to Dr. Sun that has a history of myocardial infarction in 2006 when she underwent PCI and stent placement to the proximal and mid LAD. She also had an non-ST elevation myocardial infarction in 2013 where she had redo stents to the LAD. Her last cardiac catheterization was in 2014 when she was found to have distal left main stenosis of 70% with LAD ostial stenosis of 60%. She was recommended to undergo coronary artery bypass graft; however, the patient declined cardiac surgery. The patient is admitted for AV shunt placement. After the surgery, the patient was doing well but was given protamine. She then became unresponsive. She had no pulse. She had brief CPR for approximately one minute. There was return of the spontaneous circulation. There were no arrhythmias noted on telemetry; however, the patient did have AV paced rhythm. Afterwards, the patient was hypertensive in the recovery room. She is currently on the ventilator and responds to verbal stimuli. Cardiology was asked to see the patient because of resuscitated arrest. PAST MEDICAL HISTORY 1. Myocardial infarction 2007 status post PCI and stent placement to the proximal and mid LAD. 2. Non-ST elevation myocardial infarction, 01/2014. 3. PCI and stent to the proximal and mid LAD, 07/2013, at [facility] per Dr. Jones. 4. Cardiac catheterization, 01/10/2015, per Dr. Covarrubias at [facility] that revealed distal left main 70%. Left circumflex artery 60% ostial. Mid circumflex stent patent. LAD ostial 60% that was threatened by severe left main stenosis. Mid LAD a 50% stenosis after widely patent stent. Mid diagonal branch 75% ostial. Right coronary artery 50 to 60% mid vessel. Ejection fraction of 40 to 45%. The patient declined surgery. 5. Hypertension. 6. Hyperlipidemia. 7. Diastolic heart failure. 8. Paroxysmal atrial fibrillation on anticoagulation with Eliquis. 9. Sick sinus syndrome status post permanent pacemaker. 10. Chronic kidney disease. 11. Peripheral vascular disease status post right BKA. 12. History of DVT/pulmonary embolism. 13. Former smoker. Unit #: [id number] #: [id number] Patient: MICHELLE DUNHAM PAST SURGICAL HISTORY 1. Cholecystectomy. 2. Hand surgery. 3. Carpal tunnel release. 4. Left foot amputation. 5. Right ltmow-oiz-uyrt amputation. 6. Tubal ligation. 7. Right AV shunt. SOCIAL HISTORY The patient quit smoking in 2006 but previously smoked three packs of cigarettes daily. No illicit drug or alcohol use. FAMILY HISTORY Positive for heart disease in the father. ALLERGIES Oxycodone, Talwin, ciprofloxacin, sulfa, lisinopril, codeine, propoxyphene, Macrobid, Demerol, Phenergan, amphetamine, pentazocine. HOME MEDICATIONS 1. Xanax 0.5 mg t.i.d. 2. Isordil 10 mg b.i.d. 3. Eliquis 2.5 mg b.i.d. 4. Carvedilol 12.5 mg b.i.d. 5. Amiodarone 200 mg daily. 6. Flomax 0.4 mg daily. 7. Symbicort 160/4.5 mcg two puffs b.i.d. 8. Humulin 70/30 20 units subcu b.i.d. 9. Bumex 1 mg t.i.d. 10. PhosLo 667 mg t.i.d. 11. Pepcid 20 mg b.i.d. 12. Hydrocodone/acetaminophen 10/325 mg q.8 hours p.r.n. 13. Lipitor 20 mg daily. REVIEW OF SYSTEMS Unable to obtain because the patient is currently intubated. PHYSICAL EXAMINATION GENERAL APPEARANCE: This is a 65-year-old obese white female who was in no acute distress. VITAL SIGNS: Blood pressure 161/70. Heart rate 60. NEUROLOGIC: She is awakened with verbal stimuli, moves all extremities spontaneously. NECK: Trachea is midline. No thyromegaly or lymphadenopathy. No jugular venous distention. HEART: S1, S2. Heart sounds are normal. No murmurs, rubs or clicks. Regular rate and rhythm. LUNGS: Diminished breath sounds with faint crackles both lung bases. ABDOMEN: Soft, nontender but bowel sounds are present. EXTREMITIES: Left lower extremity with trace lower extremity edema. DIAGNOSTIC STUDIES LABORATORY: Glucose 164, BUN 68, creatinine 3.0, sodium 138, potassium 4.2, magnesium 2.6. CK total 139, MB 10.6, MB index 7.6. Troponin 0.04. BNP 639. White count 5.6, hemoglobin 10.0, hematocrit 32.5, platelet count 179. Unit #: [id number] #: [id number] Patient: MICHELLE DUNHAM IMAGING: Chest x-ray shows pulmonary edema. CARDIOVASCULAR: EKG shows atrially paced rhythm with underlying sinus rhythm. There are lateral Q waves. Incomplete right bundle branch block. IMPRESSION 1. Status post resuscitated arrest. 2. Questionable protamine allergy. 3. Status post right AV fistula. 4. Three vessel coronary artery disease with 70% left main stenosis. 5. History of multiple PCI and stents. 6. Hypertension. 7. Chronic diastolic heart failure. 8. Pulmonary edema. PLAN 1. Cardiology was consulted for resuscitated arrest. Doubt myocardial infarction. We will repeat cardiac enzymes and troponin. EKG is within normal limits. 2. Diuresis with IV diuretics. 3. We will follow the patient with you. Thank you for allowing us to assist in this patient's care. Dictated by... Aneta TaylorPDonnaRDonnaN. for Jesse Hough TD: 09/19/2016 06:40 JOB #: [id number] CONSULTATION REPORT Page 1 of 1 X Sorin Sebastian APRN X CONSULTATION REPORT
--- NOTE | ~2016-09-17 | EKG ---
PATIENT: MICHELLE DUNHAM UNIT #: [id number] Ventricular Rate: 60 BPM Atrial Rate: 60 BPM P-R Interval: 204 ms QRS Duration: 112 ms Q-T Interval: 508 ms QTC Calculation(Bezet): 508 ms P Newport: 17 degrees Calculated T Newport: 80 degrees Diagnosis Line: Electronic atrial pacemaker Diagnosis Line: Incomplete right bundle branch block Diagnosis Line: Lateral infarct (cited on or before 24-MAR-2016) Diagnosis Line: Abnormal ECG Diagnosis Line: When compared with ECG of 17-SEP-2016 06:13, Diagnosis Line: (unconfirmed) Diagnosis Line: Electronic atrial pacemaker has replaced Sinus Diagnosis Line: rhythm Diagnosis Line: Nonspecific T wave abnormality now evident in Diagnosis Line: Lateral leads Diagnosis Line: Confirmed by CALVIN MCCLOUD MD ([id number]) on 09/17/2016 Diagnosis Line: 11:34:44 PM INTERPRETING MD: AME MARR
--- NOTE | ~2016-09-17 | HP ---
Unit #: [id number] #: [id number] Patient: MICHELLE DUNHAM [id number] [address] [place], [place] [address] [id number] Yadiel MR#: [id number] NAME: MICHELLE DUNHAM ROOM: [facility] Age: 65 Sex: F Admission Date: 09/17/2016 : 1950 Attending Physician: Jorge Luis Gooden M.D. Referring Physician: Jorge Luis Gooden M.D. Primary Care Physician: Kaiser Veliz M.D. HISTORY AND PHYSICAL CHIEF COMPLAINT Status post resuscitative arrest. HISTORY OF PRESENT ILLNESS The patient is a 65-year-old patient who was on dialysis, who was having right AV fistula procedure done, and was given protamine sulfate and seemed to have had an arrest for which she was given chest compressions and resuscitated. She is currently still on the ventilator. I was contacted by Dr. Gooden to manage patient. Patient is currently admitted to the ICU. Patient is currently still intubated on the ventilator and was unable to provide a history at this time. Per report, patient was resuscitated. REVIEW OF SYSTEMS Unobtainable at this time; however, patient is able to sign that she is not uncomfortable. PAST MEDICAL HISTORY 1. Coronary artery disease. 2. History of congestive heart failure with preserved left ventricular systolic function, ejection fraction 50% to 55%. 3. COPD. 4. Hypertension. 5. Dyslipidemia. 6. Chronic renal insufficiency. 7. History of PE. 8. History of DVT. 9. Paroxysmal atrial fibrillation. 10. Insulin-dependent diabetes mellitus. 11. History of right below-knee amputation and left forefoot amputation. 12. Peripheral vascular disease. 13. Permanent pacemaker placement. 14. Chronic kidney disease stage 4. PAST SURGICAL HISTORY 1. History of cardiac cath and multiple stents in the past. 2. Cholecystectomy. 3. Hand surgery. 4. Carpal tunnel release. 5. Left forefoot partial amputation. 6. Right below-knee amputation. 7. Tubal ligation. 8. EGD. Unit #: [id number] #: [id number] Patient: MICHELLE DUNHAM ALLERGIES Oxycodone, Percocet, Naproxen, pentazocine, ciprofloxacin, sulfa, lisinopril, nitrofurantoin, meperidine, promethazine. SOCIAL HISTORY The patient smoked in the past, quit in 2006. Denies any illicit drug use. Lives with her . FAMILY HISTORY Significant for coronary artery disease in her father. MEDICATIONS 1. Symbicort 160/4.5 two puffs inhalation twice daily. 2. Humulin 70/30 at 20 units subcutaneous twice daily. 3. Bumex 1 mg p.o. three times a day. 4. Phos-Lo 667 mg p.o. three times daily. 5. Pepcid 20 mg p.o. twice daily. 6. Hydrocodone/acetaminophen 10/325 one tablet p.o. every eight hours. 7. Lipitor 20 mg p.o. daily. 8. Xanax 0.5 mg p.o. three times a day. 9. Isordil 10 mg p.o. twice a day. 10. Eliquis 2.5 mg p.o. twice daily. 11. Coreg 12.5 mg p.o. twice daily. PHYSICAL EXAMINATION GENERAL: She was comfortable, in no acute distress. Patient is on the ventilator. VITAL SIGNS: Blood pressure 153/86, pulse 66, saturations 100% on the ventilator. She is on 60% FIO2. CHEST: Mostly clear. ABDOMEN: Soft, nondistended. No palpable organomegaly. EXTREMITIES: She has a right BKA and left forefoot amputation. CENTRAL NERVOUS SYSTEM: Limited at this time secondary to patient being on the ventilator. She seems unable to move her right upper extremity against gravity; however, is able to dorsiflex and plantar flex her wrist as well as wiggle her right fingers of the right upper extremity. Motion of left upper extremity was seen within normal limits. SKIN: Warm and dry with no rashes. LYMPHATIC: There are no enlarged peripheral or lymphadenopathy that I could appreciate. DIAGNOSTIC STUDIES LABORATORY: BMP: Glucose 164, BUN and creatinine 68 and 3, sodium and potassium 138 and 4.2, chloride and bicarbonate 105 and 22 respectively. Calcium level of 9.1. She had a CBC: WBC 5.6, hemoglobin and hematocrit 10 and 32.5 with a platelet count of 179,000. ASSESSMENT AND PLAN 1. Status post resuscitative arrest: The plan is to get three sets of cardiac markers and get blood work, CBC and BMP. Cardiology has been consulted. Patient is still on the ventilator at this time. Pulmonary has also been consulted. 2. End-stage renal disease/chronic kidney disease: If patient is on dialysis, would get a nephrology consult on board. 3. Diabetes mellitus: Continue insulin treatment. Accu-Cheks q.6 while NPO and put her on a sliding scale. 4. Coronary artery disease: Cardiology has been consulted. 5. Atrial fibrillation. Unit #: [id number] #: [id number] Patient: MICHELLE DUNHAM 6. Pacemaker. 7. Gastrointestinal prophylaxis/gastroesophageal reflux disease. 8. Hyperlipidemia. CODE STATUS Undetermined at this time; however, she is a full code at the time of the dictation. Dictated by Jesse Will/jay TD: 09/17/2016 16:36 JOB #: [id number] HISTORY AND PHYSICAL Page 1 of 1 X Pilar Barton MD X HISTORY AND PHYSICAL
[~2016-09-17 05:44] MED LIST changes: -AMIODARONE PO; -BUMEX1 MG PO; -CARVEDILOL12.5 MG PO; -PEPCID AC20 M2 PO; -PHOSLO667 M1 PO
[2016-09-17] MEDS ORDERED: PEPCID AC20 M2 PO (06:23)
[2016-09-17] MEDS ORDERED: HYDROCODON-ACE1 EAC5 PO (06:24)
[2016-09-17] MEDS ORDERED: LIPITOR20 MG PO (07:11)
[2016-09-17 10:42] LABS: ARTERIAL BLD GAS O2 SATURATION 93.8 % (90.0-100.0); ARTERIAL BLOOD GAS CARBOXY HB 0.5 %sat (0.0-9.0); ARTERIAL BLOOD GAS HCO3 25.2 mmol/L; ARTERIAL BLOOD GAS MET HB 0.8 %sat (0.0-2.0); ARTERIAL BLOOD GAS PCO2 46.9 mmHg (35.0-45.0); ARTERIAL BLOOD GAS pH 7.339 (7.350-7.450)
[2016-09-17 10:43] LABS: ARTERIAL BLOOD GAS ALLEN TEST NORMAL; ARTERIAL BLOOD GAS ART SITE LEFT RADIAL; ARTERIAL BLOOD GAS PO2 78.4 mmHg (80.0-100); ARTERIAL BLOOD GAS VENT MODE AC; ARTERIAL DRAW? YES
[2016-09-17 12:01] LABS: ARTERIAL BLD GAS O2 SATURATION 97.9 % (90.0-100.0); ARTERIAL BLOOD GAS CARBOXY HB 0.4 %sat (0.0-9.0); ARTERIAL BLOOD GAS HCO3 24.5 mmol/L; ARTERIAL BLOOD GAS MET HB 0.9 %sat (0.0-2.0); ARTERIAL BLOOD GAS PCO2 39.7 mmHg (35.0-45.0); ARTERIAL BLOOD GAS pH 7.398 (7.350-7.450)
[2016-09-17 12:03] LABS: ARTERIAL BLOOD GAS ALLEN TEST NORMAL; ARTERIAL BLOOD GAS ART SITE LEFT RADIAL; ARTERIAL BLOOD GAS VENT MODE AC; ARTERIAL DRAW? YES
[2016-09-17 12:18] LABS: BASOPHIL% 0.5 % (0-2.5); EOSINOPHIL# 0.1 X10e3 (0-0.7); EOSINOPHIL% 1.8 % (0.0-7.0); HEMATOCRIT 32.5 % (35.0-45.0); LYMPHOCYTE# 1.2 X10e3 (1.0-3.5); LYMPHOCYTE% 21.3 % (17.0-45.0); MEAN CELL VOLUME 85.3 FL (83-96); MEAN CORPUSCULAR HEMOGLOBIN 26.3 PG (28-34); MEAN CORPUSCULAR HGB CONC 30.9 g/dL (30-36); MEAN PLATELET VOLUME 7.9 FL (6.5-11.5); MONOCYTE# 0.4 X10e3 (0-1.0); MONOCYTE% 8.1 % (3.0-12.0); NEUTROPHIL# 3.8 X10e3 (1.5-7.1); NEUTROPHIL% 68.3 % (40-75); PLATELET COUNT 179 X10e3 (140-420); RED BLOOD COUNT 3.81 X10e (3.90-5.30); RED CELL DISTRIBUTION WIDTH 16.8 % (11.0-15.5); WHITE BLOOD COUNT 5.6 X10e3 (4.0-10.5)
[2016-09-17 12:36] LABS: DIFF IND NO
[2016-09-17 12:47] LABS: BUN/CREATININE RATIO 22.66; CALCIUM SERUM 9.1 mg/dL (8.4-10.2); GLOM FILT RATE Estimated 15.5 mL/min (>60); MAGNESIUM 2.6 mg/dL (1.6-3.0); POTASSIUM 4.2 mmol/L (3.5-5.1)
[2016-09-17] MEDS ORDERED: BUMEX1 MG PO (13:27)
[2016-09-17] MEDS ORDERED: PHOSLO667 M1 PO (13:50)
[2016-09-17 14:46] LABS: %MB 7.6 % (0.0-4.0); MB 10.6 ng/ml
[2016-09-17 18:40] LABS: URINE SOURCE CLEAN CATCH
[2016-09-17 18:49] LABS: URINE APPEARANCE CLEAR; URINE BILIRUBIN NEG (NEG); URINE BLOOD 1+ (NEG); URINE COLOR YELLOW; URINE GLUCOSE 100 MG/DL (NEG); URINE KETONE NEG (NEG); URINE LEUKOCYTE ESTERASE 2+ (NEG); URINE NITRATE NEG (NEG); URINE PROTEIN 3+ (NEG); URINE SPECIFIC GRAVITY 1.016 (1.003-1.035); URINE UROBILINOGEN 0.2 MG/DL (NEG)
[2016-09-17 18:52] LABS: CULTURE INDICATED? YES; URINE BACTERIA AUWI NEG (NEGATIVE); URINE SQUAMOUS EPITHELIAL CELL MOD /[HPF]
[2016-09-17 19:09] LABS: U HYALINE CASTS AUWI 0-2 /[LPF]
[2016-09-17] MEDS ORDERED: ISORDIL10 MG PO (20:58)
[2016-09-17] MEDS ORDERED: ELIQUIS2.5 MG PO (20:58)
[2016-09-17] MEDS ORDERED: AMIODARONE PO (20:59)
[2016-09-17] MEDS ORDERED: FLOMAX0.4 M1 PO (20:59)
[2016-09-17] MEDS ORDERED: CARVEDILOL12.5 MG PO (20:59)
[2016-09-17] MEDS ORDERED: SYMBICORT INH (21:00)
[2016-09-17] MEDS ORDERED: HUMULIN 70/30 V10 ML SUBQ (21:01)
[2016-09-17 23:00] LABS: %MB 6.1 % (0.0-4.0); MB 5.4 ng/ml
[2016-09-18 04:10] LABS: ARTERIAL BLD GAS O2 SATURATION 97.9 % (90.0-100.0); ARTERIAL BLOOD GAS CARBOXY HB 0.6 %sat (0.0-9.0); ARTERIAL BLOOD GAS MET HB 1.4 %sat (0.0-2.0); ARTERIAL BLOOD GAS PCO2 33.2 mmHg (35.0-45.0); ARTERIAL BLOOD GAS pH 7.468 (7.350-7.450)
[2016-09-18 04:15] LABS: ARTERIAL BLOOD GAS ALLEN TEST NORMAL; ARTERIAL BLOOD GAS ART SITE LEFT RADIAL; ARTERIAL BLOOD GAS DELIVERY VENT; ARTERIAL BLOOD GAS VENT MODE AC; ARTERIAL DRAW? YES
[2016-09-18 08:44] LABS: BASOPHIL% 0.5 % (0-2.5); DIFF IND NO; EOSINOPHIL% 0.2 % (0.0-7.0); HEMATOCRIT 30.9 % (35.0-45.0); HEMOGLOBIN 9.7 gm/dL (12.0-16.0); LYMPHOCYTE# 1.6 X10e3 (1.0-3.5); LYMPHOCYTE% 20.8 % (17.0-45.0); MEAN CELL VOLUME 83.8 FL (83-96); MEAN CORPUSCULAR HEMOGLOBIN 26.3 PG (28-34); MEAN CORPUSCULAR HGB CONC 31.3 g/dL (30-36); MEAN PLATELET VOLUME 8.2 FL (6.5-11.5); MONOCYTE# 0.7 X10e3 (0-1.0); MONOCYTE% 8.7 % (3.0-12.0); NEUTROPHIL# 5.3 X10e3 (1.5-7.1); NEUTROPHIL% 69.8 % (40-75); PLATELET COUNT 227 X10e3 (140-420); RED BLOOD COUNT 3.68 X10e (3.90-5.30); RED CELL DISTRIBUTION WIDTH 16.6 % (11.0-15.5); WHITE BLOOD COUNT 7.6 X10e3 (4.0-10.5)
[2016-09-18 09:18] LABS: ALBUMIN SERUM 3.1 g/dL (3.5-5.0); BILIRUBIN,TOTAL 0.7 mg/dL (0.2-2.0); BUN/CREATININE RATIO 21.17; CREATININE SERUM 3.4 mg/dL (0.6-1.4); GLOM FILT RATE Estimated 13.4 mL/min (>60); MAGNESIUM 2.4 mg/dL (1.6-3.0); POTASSIUM 4.6 mmol/L (3.5-5.1); PROTEIN TOTAL SERUM 6.8 g/dL (6.0-8.3)
[2016-09-18 11:09] LABS: %MB 4.5 % (0.0-4.0); MB 2.8 ng/ml
[2016-09-18 12:24] LABS: ARTERIAL BLD GAS O2 SATURATION 98.5 % (90.0-100.0); ARTERIAL BLOOD GAS CARBOXY HB 0.2 %sat (0.0-9.0); ARTERIAL BLOOD GAS HCO3 21.9 mmol/L; ARTERIAL BLOOD GAS MET HB 0.9 %sat (0.0-2.0); ARTERIAL BLOOD GAS PCO2 25.7 mmHg (35.0-45.0)
[2016-09-18 12:26] LABS: ARTERIAL BLOOD GAS ART SITE LEFT RADIAL; ARTERIAL BLOOD GAS DELIVERY VENT; ARTERIAL BLOOD GAS VENT MODE CPAP; ARTERIAL DRAW? YES
[2016-09-19 05:22] LABS: BASOPHIL% 0.4 % (0-2.5); EOSINOPHIL# 0.1 X10e3 (0-0.7); EOSINOPHIL% 1.1 % (0.0-7.0); HEMATOCRIT 26.5 % (35.0-45.0); HEMOGLOBIN 8.4 gm/dL (12.0-16.0); LYMPHOCYTE# 1.5 X10e3 (1.0-3.5); LYMPHOCYTE% 24.3 % (17.0-45.0); MEAN CELL VOLUME 84.5 FL (83-96); MEAN CORPUSCULAR HEMOGLOBIN 26.7 PG (28-34); MEAN CORPUSCULAR HGB CONC 31.6 g/dL (30-36); MONOCYTE# 0.6 X10e3 (0-1.0); MONOCYTE% 10.4 % (3.0-12.0); NEUTROPHIL# 3.9 X10e3 (1.5-7.1); NEUTROPHIL% 63.8 % (40-75); PLATELET COUNT 187 X10e3 (140-420); RED BLOOD COUNT 3.14 X10e (3.90-5.30); RED CELL DISTRIBUTION WIDTH 16.6 % (11.0-15.5); WHITE BLOOD COUNT 6.1 X10e3 (4.0-10.5)
[2016-09-19 05:56] LABS: DIFF IND NO
[2016-09-19 06:22] LABS: ALBUMIN SERUM 2.7 g/dL (3.5-5.0); BILIRUBIN,TOTAL 0.7 mg/dL (0.2-2.0); BUN/CREATININE RATIO 20.85; CALCIUM SERUM 8.5 mg/dL (8.4-10.2); CREATININE SERUM 3.5 mg/dL (0.6-1.4); GLOM FILT RATE Estimated 12.9 mL/min (>60); POTASSIUM 4.6 mmol/L (3.5-5.1); PROTEIN TOTAL SERUM 6.2 g/dL (6.0-8.3)
[2016-09-20 03:11] LABS: BASOPHIL% 0.6 % (0-2.5); EOSINOPHIL# 0.2 X10e3 (0-0.7); EOSINOPHIL% 2.7 % (0.0-7.0); HEMATOCRIT 26.4 % (35.0-45.0); HEMOGLOBIN 8.4 gm/dL (12.0-16.0); LYMPHOCYTE# 1.2 X10e3 (1.0-3.5); LYMPHOCYTE% 18.6 % (17.0-45.0); MEAN CELL VOLUME 84.2 FL (83-96); MEAN CORPUSCULAR HEMOGLOBIN 26.8 PG (28-34); MEAN CORPUSCULAR HGB CONC 31.8 g/dL (30-36); MEAN PLATELET VOLUME 7.7 FL (6.5-11.5); MONOCYTE# 0.7 X10e3 (0-1.0); MONOCYTE% 10.8 % (3.0-12.0); NEUTROPHIL# 4.5 X10e3 (1.5-7.1); NEUTROPHIL% 67.3 % (40-75); PLATELET COUNT 191 X10e3 (140-420); RED BLOOD COUNT 3.14 X10e (3.90-5.30); RED CELL DISTRIBUTION WIDTH 16.7 % (11.0-15.5); WHITE BLOOD COUNT 6.6 X10e3 (4.0-10.5)
[2016-09-20 03:12] LABS: DIFF IND NO
[2016-09-20 04:13] LABS: BUN/CREATININE RATIO 19.47; CALCIUM SERUM 8.5 mg/dL (8.4-10.2); CREATININE SERUM 3.8 mg/dL (0.6-1.4); GLOM FILT RATE Estimated 11.7 mL/min (>60); MAGNESIUM 2.3 mg/dL (1.6-3.0); POTASSIUM 4.5 mmol/L (3.5-5.1)
[2016-09-20 18:33] LABS: URINE APPEARANCE CLOUDY; URINE BILIRUBIN NEG (NEG); URINE BLOOD 1+ (NEG); URINE COLOR YELLOW; URINE GLUCOSE 100 MG/DL (NEG); URINE KETONE NEG (NEG); URINE LEUKOCYTE ESTERASE 1+ (NEG); URINE NITRATE NEG (NEG); URINE PROTEIN 3+ (NEG); URINE SPECIFIC GRAVITY 1.014 (1.003-1.035); URINE UROBILINOGEN 0.2 MG/DL (NEG)
[2016-09-20 18:36] LABS: CULTURE INDICATED? YES; URINE BACTERIA AUWI NEG (NEGATIVE); URINE SQUAMOUS EPITHELIAL CELL MOD /[HPF]; UWBCS1 AUWI 25-50 (0-5)
[2016-09-20 18:55] LABS: U HYALINE CASTS AUWI 0-2 /[LPF]; URINE GRANULAR CAST 0-2 /[HPF]
[2016-09-20 18:56] LABS: URINE YEAST PRESENT
[2016-09-21 03:27] LABS: HEMATOCRIT 26.8 % (35.0-45.0); HEMOGLOBIN 8.5 gm/dL (12.0-16.0); MEAN CELL VOLUME 84.9 FL (83-96); MEAN CORPUSCULAR HEMOGLOBIN 26.8 PG (28-34); MEAN CORPUSCULAR HGB CONC 31.6 g/dL (30-36); MEAN PLATELET VOLUME 8.5 FL (6.5-11.5); RED BLOOD COUNT 3.15 X10e (3.90-5.30); RED CELL DISTRIBUTION WIDTH 16.1 % (11.0-15.5); WHITE BLOOD COUNT 5.5 X10e3 (4.0-10.5)
[2016-09-21 03:44] LABS: ALBUMIN SERUM 2.8 g/dL (3.5-5.0); BILIRUBIN,TOTAL 0.6 mg/dL (0.2-2.0); BUN/CREATININE RATIO 21.28; CALCIUM SERUM 8.9 mg/dL (8.4-10.2); CREATININE SERUM 3.9 mg/dL (0.6-1.4); GLOM FILT RATE Estimated 11.3 mL/min (>60); PHOSPHOROUS 6.8 mg/dL (2.5-4.6); POTASSIUM 4.9 mmol/L (3.5-5.1); PROTEIN TOTAL SERUM 7.1 g/dL (6.0-8.3); URIC ACID 10.1 mg/dL (2.6-7.2)
[2016-09-22 03:30] LABS: BASOPHIL% 0.8 % (0-2.5); EOSINOPHIL% 0.9 % (0.0-7.0); HEMATOCRIT 25.7 % (35.0-45.0); LYMPHOCYTE# 1.2 X10e3 (1.0-3.5); LYMPHOCYTE% 23.3 % (17.0-45.0); MEAN CELL VOLUME 85.4 FL (83-96); MEAN CORPUSCULAR HEMOGLOBIN 26.8 PG (28-34); MEAN CORPUSCULAR HGB CONC 31.3 g/dL (30-36); MEAN PLATELET VOLUME 8.3 FL (6.5-11.5); MONOCYTE# 0.5 X10e3 (0-1.0); MONOCYTE% 8.7 % (3.0-12.0); NEUTROPHIL# 3.5 X10e3 (1.5-7.1); NEUTROPHIL% 66.3 % (40-75); PLATELET COUNT 191 X10e3 (140-420); RED CELL DISTRIBUTION WIDTH 16.1 % (11.0-15.5); WHITE BLOOD COUNT 5.3 X10e3 (4.0-10.5)
[2016-09-22 03:34] LABS: DIFF IND NO
[2016-09-22 03:55] LABS: BUN/CREATININE RATIO 22.89; CALCIUM SERUM 8.2 mg/dL (8.4-10.2); CREATININE SERUM 3.8 mg/dL (0.6-1.4); GLOM FILT RATE Estimated 11.7 mL/min (>60); POTASSIUM 3.9 mmol/L (3.5-5.1)
[2016-09-23 03:02] LABS: BASOPHIL% 0.8 % (0-2.5); EOSINOPHIL# 0.1 X10e3 (0-0.7); EOSINOPHIL% 2.2 % (0.0-7.0); HEMATOCRIT 26.2 % (35.0-45.0); HEMOGLOBIN 8.2 gm/dL (12.0-16.0); LYMPHOCYTE# 1.2 X10e3 (1.0-3.5); MEAN CELL VOLUME 84.6 FL (83-96); MEAN CORPUSCULAR HEMOGLOBIN 26.6 PG (28-34); MEAN CORPUSCULAR HGB CONC 31.5 g/dL (30-36); MEAN PLATELET VOLUME 8.1 FL (6.5-11.5); MONOCYTE# 0.6 X10e3 (0-1.0); MONOCYTE% 9.9 % (3.0-12.0); NEUTROPHIL# 3.7 X10e3 (1.5-7.1); NEUTROPHIL% 66.1 % (40-75); PLATELET COUNT 216 X10e3 (140-420); RED CELL DISTRIBUTION WIDTH 16.2 % (11.0-15.5); WHITE BLOOD COUNT 5.6 X10e3 (4.0-10.5)
[2016-09-23 03:08] LABS: DIFF IND NO
[2016-09-23 03:34] LABS: BUN/CREATININE RATIO 23.5; CALCIUM SERUM 8.3 mg/dL (8.4-10.2); POTASSIUM 4.1 mmol/L (3.5-5.1)
[2016-09-24 02:50] LABS: BASOPHIL% 0.5 % (0-2.5); EOSINOPHIL# 0.1 X10e3 (0-0.7); EOSINOPHIL% 1.6 % (0.0-7.0); HEMATOCRIT 27.8 % (35.0-45.0); HEMOGLOBIN 8.7 gm/dL (12.0-16.0); LYMPHOCYTE# 1.1 X10e3 (1.0-3.5); LYMPHOCYTE% 17.9 % (17.0-45.0); MEAN CELL VOLUME 85.8 FL (83-96); MEAN CORPUSCULAR HGB CONC 31.5 g/dL (30-36); MEAN PLATELET VOLUME 8.2 FL (6.5-11.5); MONOCYTE# 0.6 X10e3 (0-1.0); MONOCYTE% 8.8 % (3.0-12.0); NEUTROPHIL# 4.5 X10e3 (1.5-7.1); NEUTROPHIL% 71.2 % (40-75); PLATELET COUNT 258 X10e3 (140-420); RED BLOOD COUNT 3.23 X10e (3.90-5.30); RED CELL DISTRIBUTION WIDTH 16.2 % (11.0-15.5); WHITE BLOOD COUNT 6.3 X10e3 (4.0-10.5)
[2016-09-24 02:54] LABS: DIFF IND NO
[2016-09-24 03:14] LABS: BUN/CREATININE RATIO 19.8; CALCIUM SERUM 8.5 mg/dL (8.4-10.2); GLOM FILT RATE Estimated 8.4 mL/min (>60); POTASSIUM 4.9 mmol/L (3.5-5.1)
[2016-09-24 12:10] LABS: URINE APPEARANCE CLOUDY; URINE BILIRUBIN NEG (NEG); URINE BLOOD 3+ (NEG); URINE COLOR YELLOW; URINE GLUCOSE NORM (NORM); URINE KETONE NEG (NEG); URINE LEUKOCYTE ESTERASE 3+ (NEG); URINE NITRATE NEG (NEG); URINE PROTEIN 2+ (NEG); URINE UROBILINOGEN NORM (NORM)
[2016-09-24 13:26] LABS: URINE AMORPHOUS SEDIMENT AMORP URATES
[2016-09-24 13:27] LABS: URINE YEAST PRESENT
[2016-09-24 13:28] LABS: URBCS1 AUWI INNUM /[HPF] (0-2); UWBCS1 AUWI INNUM (0-5)
[2016-09-24 13:31] LABS: URINE SQUAMOUS EPITHELIAL CELL FEW /[HPF]
[2016-09-25 03:46] LABS: BASOPHIL% 0.5 % (0-2.5); EOSINOPHIL# 0.1 X10e3 (0-0.7); EOSINOPHIL% 1.6 % (0.0-7.0); HEMATOCRIT 25.6 % (35.0-45.0); HEMOGLOBIN 8.1 gm/dL (12.0-16.0); LYMPHOCYTE# 1.3 X10e3 (1.0-3.5); LYMPHOCYTE% 25.7 % (17.0-45.0); MEAN CELL VOLUME 85.2 FL (83-96); MEAN CORPUSCULAR HEMOGLOBIN 27.1 PG (28-34); MEAN CORPUSCULAR HGB CONC 31.8 g/dL (30-36); MONOCYTE# 0.4 X10e3 (0-1.0); MONOCYTE% 9.1 % (3.0-12.0); NEUTROPHIL# 3.1 X10e3 (1.5-7.1); NEUTROPHIL% 63.1 % (40-75); PLATELET COUNT 227 X10e3 (140-420); RED BLOOD COUNT 3.01 X10e (3.90-5.30); RED CELL DISTRIBUTION WIDTH 16.3 % (11.0-15.5); WHITE BLOOD COUNT 4.9 X10e3 (4.0-10.5)
[2016-09-25 03:47] LABS: DIFF IND NO
[2016-09-25 03:59] LABS: INR 1.1; PARTIAL THROMBOPLASTIN TIME 36.2 SECONDS (23.5-31.3); PROTHROMBIN TIME (PATIENT) 11.9 SECONDS (9.6-11.5)
[2016-09-25 04:14] LABS: CALCIUM SERUM 8.7 mg/dL (8.4-10.2); GLOM FILT RATE Estimated 8.4 mL/min (>60); POTASSIUM 4.4 mmol/L (3.5-5.1)
[2016-09-25 04:15] LABS: BUN/CREATININE RATIO 20.6
[2016-09-26 03:43] LABS: BASOPHIL% 0.6 % (0-2.5); EOSINOPHIL# 0.1 X10e3 (0-0.7); EOSINOPHIL% 1.4 % (0.0-7.0); HEMATOCRIT 26.3 % (35.0-45.0); HEMOGLOBIN 8.3 gm/dL (12.0-16.0); LYMPHOCYTE% 21.2 % (17.0-45.0); MEAN CELL VOLUME 86.4 FL (83-96); MEAN CORPUSCULAR HEMOGLOBIN 27.3 PG (28-34); MEAN CORPUSCULAR HGB CONC 31.6 g/dL (30-36); MONOCYTE# 0.5 X10e3 (0-1.0); MONOCYTE% 10.3 % (3.0-12.0); NEUTROPHIL# 3.2 X10e3 (1.5-7.1); NEUTROPHIL% 66.5 % (40-75); PLATELET COUNT 231 X10e3 (140-420); RED BLOOD COUNT 3.04 X10e (3.90-5.30); RED CELL DISTRIBUTION WIDTH 16.3 % (11.0-15.5); WHITE BLOOD COUNT 4.9 X10e3 (4.0-10.5)
[2016-09-26 03:44] LABS: DIFF IND NO
[2016-09-26 04:08] LABS: BUN/CREATININE RATIO 19.14; CALCIUM SERUM 8.4 mg/dL (8.4-10.2); CREATININE SERUM 3.5 mg/dL (0.6-1.4); GLOM FILT RATE Estimated 12.9 mL/min (>60); POTASSIUM 4.2 mmol/L (3.5-5.1)
[2016-09-27 04:32] LABS: BASOPHIL% 0.5 % (0-2.5); EOSINOPHIL# 0.1 X10e3 (0-0.7); EOSINOPHIL% 1.1 % (0.0-7.0); HEMATOCRIT 26.6 % (35.0-45.0); HEMOGLOBIN 8.3 gm/dL (12.0-16.0); LYMPHOCYTE# 1.3 X10e3 (1.0-3.5); LYMPHOCYTE% 21.6 % (17.0-45.0); MEAN CORPUSCULAR HEMOGLOBIN 26.9 PG (28-34); MEAN CORPUSCULAR HGB CONC 31.3 g/dL (30-36); MONOCYTE# 0.6 X10e3 (0-1.0); MONOCYTE% 10.4 % (3.0-12.0); NEUTROPHIL# 3.9 X10e3 (1.5-7.1); NEUTROPHIL% 66.4 % (40-75); PLATELET COUNT 256 X10e3 (140-420); RED BLOOD COUNT 3.09 X10e (3.90-5.30); RED CELL DISTRIBUTION WIDTH 16.4 % (11.0-15.5); WHITE BLOOD COUNT 5.9 X10e3 (4.0-10.5)
[2016-09-27 04:33] LABS: DIFF IND NO
[2016-09-27 04:57] LABS: BUN/CREATININE RATIO 19.72; CALCIUM SERUM 8.8 mg/dL (8.4-10.2); CREATININE SERUM 3.6 mg/dL (0.6-1.4); GLOM FILT RATE Estimated 12.5 mL/min (>60); POTASSIUM 4.3 mmol/L (3.5-5.1)
[2016-09-28 03:41] LABS: HEMATOCRIT 28.4 % (35.0-45.0); MEAN CORPUSCULAR HEMOGLOBIN 27.3 PG (28-34); MEAN CORPUSCULAR HGB CONC 31.8 g/dL (30-36); MEAN PLATELET VOLUME 7.7 FL (6.5-11.5); RED BLOOD COUNT 3.3 X10e (3.90-5.30); RED CELL DISTRIBUTION WIDTH 16.9 % (11.0-15.5); WHITE BLOOD COUNT 6.3 X10e3 (4.0-10.5)
[2016-09-28 04:05] LABS: BUN/CREATININE RATIO 15.2; CALCIUM SERUM 8.5 mg/dL (8.4-10.2); CREATININE SERUM 2.5 mg/dL (0.6-1.4); GLOM FILT RATE Estimated 19.4 mL/min (>60)
[2016-09-28 08:56] LABS: HEP B SURFACE AG Nonreactive (Nonreactive); HEP C AB (HEPPAN) Nonreactive (Nonreactive); HEP C AB SIGNAL TO CUTOFF 0.08 ratio (<1.00); HEPATITIS B SURFACE ANTIBODY <5 mIU/mL (>=10)
[2016-09-29 04:09] LABS: HEMATOCRIT 26.9 % (35.0-45.0); HEMOGLOBIN 8.4 gm/dL (12.0-16.0); MEAN CELL VOLUME 86.8 FL (83-96); MEAN CORPUSCULAR HEMOGLOBIN 27.1 PG (28-34); MEAN CORPUSCULAR HGB CONC 31.2 g/dL (30-36); MEAN PLATELET VOLUME 7.7 FL (6.5-11.5); RED BLOOD COUNT 3.1 X10e (3.90-5.30); WHITE BLOOD COUNT 5.2 X10e3 (4.0-10.5)
[2016-09-29 04:34] LABS: BUN/CREATININE RATIO 15.17; CALCIUM SERUM 8.6 mg/dL (8.4-10.2); CREATININE SERUM 2.9 mg/dL (0.6-1.4); GLOM FILT RATE Estimated 16.2 mL/min (>60)
[2016-09-30 05:34] LABS: BASOPHIL% 0.5 % (0-2.5); EOSINOPHIL% 0.9 % (0.0-7.0); HEMATOCRIT 26.7 % (35.0-45.0); HEMOGLOBIN 8.5 gm/dL (12.0-16.0); LYMPHOCYTE# 0.9 X10e3 (1.0-3.5); LYMPHOCYTE% 17.2 % (17.0-45.0); MEAN CELL VOLUME 85.9 FL (83-96); MEAN CORPUSCULAR HEMOGLOBIN 27.3 PG (28-34); MEAN CORPUSCULAR HGB CONC 31.8 g/dL (30-36); MEAN PLATELET VOLUME 7.4 FL (6.5-11.5); MONOCYTE# 0.6 X10e3 (0-1.0); MONOCYTE% 11.2 % (3.0-12.0); NEUTROPHIL# 3.8 X10e3 (1.5-7.1); NEUTROPHIL% 70.2 % (40-75); PLATELET COUNT 209 X10e3 (140-420); RED BLOOD COUNT 3.11 X10e (3.90-5.30); RED CELL DISTRIBUTION WIDTH 18.4 % (11.0-15.5); WHITE BLOOD COUNT 5.5 X10e3 (4.0-10.5)
[2016-09-30 05:36] LABS: DIFF IND NO
[2016-09-30 06:40] LABS: BUN/CREATININE RATIO 11.42; CALCIUM SERUM 8.5 mg/dL (8.4-10.2); CREATININE SERUM 2.1 mg/dL (0.6-1.4); GLOM FILT RATE Estimated 23.9 mL/min (>60); POTASSIUM 3.8 mmol/L (3.5-5.1)
== END 2016-09-30 17:45 | DRG 264 ==
LOC: CSUR 05:44 → CPACUOF 09:39 → CICCU3 14:22 → C4C 09-19 14:30
PROVIDERS: Family Medicine; Internal Medicine; Internal Medicine Cardiovascular Disease; Internal Medicine Nephrology; Surgery Vascular Surgery
PROC: 5A12012 Performance of Cardiac Output, Single, Manual (ICD-10-PCS; 2016-09-17)
PROC: B246ZZZ Ultrasonography of Right and Left Heart (ICD-10-PCS; 2016-09-17)
PROC: 0BH17EZ Insertion of Endotracheal Airway into Trachea, Via Natural or Artificial Opening (ICD-10-PCS; 2016-09-17)
PROC: 5A1945Z Respiratory Ventilation, 24-96 Consecutive Hours (ICD-10-PCS; 2016-09-17)
PROC: 031709D Bypass Right Brachial Artery to Upper Arm Vein with Autologous Venous Tissue, Open Approach (ICD-10-PCS; principal; 2016-09-17 07:30)
PROC: 05HM33Z Insertion of Infusion Device into Right Internal Jugular Vein, Percutaneous Approach (ICD-10-PCS; 2016-09-25)
PROC: B543ZZA Ultrasonography of Right Jugular Veins, Guidance (ICD-10-PCS; 2016-09-25)
PROC: 5A1D60Z (ICD-10-PCS; 2016-09-25)
DX: I13.2 Hypertensive heart and chronic kidney disease with heart failure and with stage 5 chronic kidney disease, or end stage renal disease (principal); I26.99 Other pulmonary embolism without acute cor pulmonale; J96.01 Acute respiratory failure with hypoxia; N18.6 End stage renal disease; E11.22 Type 2 diabetes mellitus with diabetic chronic kidney disease; I49.5 Sick sinus syndrome; T88.6XXA Anaphylactic reaction due to adverse effect of correct drug or medicament properly administered, initial encounter; I50.20 Unspecified systolic (congestive) heart failure; I97.711 Intraoperative cardiac arrest during other surgery; T37.1X5A Adverse effect of antimycobacterial drugs, initial encounter; Y83.2 Surgical operation with anastomosis, bypass or graft as the cause of abnormal reaction of the patient, or of later complication, without mention of misadventure at the time of the procedure; Y92.234 Operating room of hospital as the place of occurrence of the external cause; R07.89 Other chest pain; M10.9 Gout, unspecified; E78.5 Hyperlipidemia, unspecified; I48.0 Paroxysmal atrial fibrillation; I73.9 Peripheral vascular disease, unspecified; Z86.718 Personal history of other venous thrombosis and embolism; Z87.891 Personal history of nicotine dependence; Z95.5 Presence of coronary angioplasty implant and graft; Z95.0 Presence of cardiac pacemaker; Z99.2 Dependence on renal dialysis; Z89.521 Acquired absence of right knee; D64.9 Anemia, unspecified
CPT/HCPCS: 36600; 71010; 71110; 73560; 76000; 77001; 80048; 80053; 80061; 81003; 82550; 82553; 82728; 82803; 82947; 83540; 83550; 83735; 83880; 84100; 84300; 84484; 84550; 85025; 85027; 85610; 85730; 86704; 86706; 86803; 87086; 87340; 87806; 89190; 92526; 92610; 93005; 93306; 94002; 94003; 94640; 94664; 94760; 97110; 97116; 97162; 97165; 97530; 97535; C1750; C9113; G8978-GP; G8979-GP; G8987-GO; G8988-GO; G8989-GO; G8996-GN; G8997-GN; G8998-GN; J0360; J0690; J0885; J1644; J2250; J2270; J2405; J2543; J2720; J2795; J2916; J2930; J3490; Q4081

== ENCOUNTER 2016-11-25 23:56 | Inpatient (IN) | payer OTHER ==
--- NOTE | ~2016-11-25 | HP ---
Unit #: [id number] #: [id number] Patient: MICHELLE DUNHAM [id number] [facility] [address] [place], [place] [address] [id number] I MR#: [id number] NAME: MICHELLE DUNHAM ROOM: 301 Age: 65 Sex: F Admission Date: 11/26/2016 : 1950 Attending Physician: Zoe Rich M.D. Primary Care Physician: Kaiser Veliz M.D. HISTORY AND PHYSICAL DIAGNOSES ON ADMISSION Shortness of air, cough. HISTORY OF PRESENT ILLNESS This 65-year-old female was admitted to [facility] from [facility] Room where she presented with shortness of air. As per patient, she was in her usual state of health when, for the last few days, she was having increased cough. The patient stated that the cough was mostly dry and was present for the last 2 weeks. The patient stated that since yesterday she also developed shortness of breath with it. The patient stated that she was not able to breathe; therefore, she presented to the ER. The patient stated that she was recently treated by her primary care physician with antibiotics, which did not help. The patient was evaluated in the ER, and we were requested to admit the patient. The patient denies having chest pain, tightness or heaviness. She is complaining of shortness of air with movement and exertion. There is no history of rectal bleeding or blood in the stool. There is no history of sore throat, sinus congestion or skin rash. The rest of the review of systems is negative. PAST MEDICAL HISTORY 1. The patient has a history of PE and DVT. 2. The patient was recently admitted at [facility] from 09/17 to 09/27/2016, and during that admission she had a cardiopulmonary arrest, possibly secondary to protamine reaction. 3. She also had acute gouty arthritis. 4. Patient also has history of COPD. 5. Hypertension. 6. Dyslipidemia. 7. Endstage renal disease - on hemodialysis. 8. Coronary artery disease. 9. Paroxysmal atrial fibrillation. 10. Insulin-dependent diabetes mellitus. 11. 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 12. Peripheral vascular disease. 13. Permanent pacemaker placement. 14. The patient has coronary artery disease status post cardiac stents placed. PAST SURGICAL HISTORY 1. As above. 2. Cholecystectomy. 3. Hand surgery. Unit #: [id number] #: [id number] Patient: MICHELLE DUNHAM 4. Carpal tunnel release. 5. Tubal ligation. SOCIAL HISTORY The patient is . Quit smoking in 2006. Denies the use of illicit drugs and drinks rarely. FAMILY HISTORY Family history is positive for coronary artery disease. ALLERGIES Sulfa, lisinopril, codeine, oxycodone, propoxyphene, pentazocine, nitrofurantoin, ciprofloxacin, Demerol, protamine and Phenergan. HOME MEDICATIONS 1. Xanax 0.5 mg p.o. t.i.d. 2. Isordil 10 mg p.o. b.i.d. 3. Eliquis 2.5 mg p.o. b.i.d. 4. Coreg 12.5 mg p.o. b.i.d. 5. Amiodarone 200 mg p.o. daily. 6. Flomax 0.4 mg p.o. daily. 7. Symbicort 160/4.5 mcg 2 puffs b.i.d. 8. Humulin 70/30 - 20 units subcu b.i.d. 9. Bumex 1 mg p.o. t.i.d. 10. PhosLo 667 mg p.o. t.i.d. 11. Pepcid 20 mg p.o. b.i.d. 12. [place] 1 mg q.8 hours p.r.n. 13. Lipitor 20 mg p.o. daily. PHYSICAL EXAMINATION GENERAL: The patient was lying comfortably in bed, not in any obvious acute distress. VITAL SIGNS: Vital signs reveal a temperature of 97.4, pulse is 59 per minute, respiratory rate is 16 per minute, blood pressure is 159/71. HEENT: Examination revealed no conjunctival congestion. Sclera is nonicteric. NECK: Neck is supple. Trachea is central. RESPIRATORY: Examination revealed decreased breath sounds bilaterally. There are no wheezes or crackles. HEART: Regular rate and rhythm. S1, S2. ABDOMEN: Abdomen is soft, nontender. Bowel sounds are present in all 4 quadrants. NEUROLOGIC: The patient's strength is 5/5 bilaterally. SKIN: Skin is warm and dry. EXTREMITIES: The patient has right below knee amputation and left forefoot amputation. DIAGNOSTIC STUDIES LABS ON ADMISSION: The patient's creatinine is 4.2, sodium is 128, potassium is 4.7. INR is 1.5. WBC is 8.5, hemoglobin 10.9, platelet count 324. IMAGING: Chest x-ray did not reveal any focal infiltrates. There were low lung volumes present. CARDIOVASCULAR: EKG revealed normal sinus rhythm. There was decreased R wave progression in anterior chest leads. Unit #: [id number] #: [id number] Patient: MICHELLE DUNHAM ASSESSMENT AND PLAN This 65-year-old female was admitted from [facility] Emergency Room with shortness of air. "Details are as per admission H and P." 1. Shortness of air, cough. CT scan of the chest is ordered. We will see the results. We will request Dr. Delgado in pulmonary consultation. 2. Anxiety disorder. We will continue home medications. 3. History of PE and DVT. Will continue on Eliquis. 4. Coronary artery disease status post stent. Continue medications. 5. COPD. Will continue Symbicort. 6. Insulin-dependent diabetes mellitus. Will continue Humulin 70/30. 7. Hypertension. Will continue medications. 8. Gastroesophageal reflux disease. Will continue Pepcid. 9. Hyperlipidemia. Will continue Lipitor. 10. The plan was discussed in detail with the patient, who showed complete understanding. Dictated by Jesse Dinero/homer TD: 11/26/2016 14:29 JOB #: [id number] HISTORY AND PHYSICAL Page 1 of 1 X Zoe Rich MD HISTORY AND PHYSICAL
--- NOTE | ~2016-11-25 | CO ---
Unit #: [id number] #: [id number] Patient: MICHELLE DUNHAM [id number] [address] [address] [id number] I MR#: [id number] NAME: MICHELLE DUNHAM ROOM: 301 Age: 65 Sex: F Admission Date: 11/26/2016 : 1950 Attending Physician: Zoe Rich M.D. Primary Care Physician: Kaiser Veliz M.D. CONSULTATION REPORT REASON FOR CONSULTATION Dyspnea. HISTORY OF PRESENT ILLNESS A 65-year-old female known to me from previous admission and outpatient visit, presents with a complaint of shortness of breath, was in her usual state a few days ago, started complaining of increased cough and also after eating and became acutely short of breath and has been admitted to the telemetry floor with impression of dyspnea and COPD and I am seeing the patient at the bedside; denies any headache, blurry vision or chest pain at present. PAST MEDICAL HISTORY Past medical history is significant for: 1. Pulmonary embolism. 2. DVT. 3. COPD. 4. Hypertension. 5. Dyslipidemia. 6. End-stage renal disease on hemodialysis. 7. Coronary artery disease. 8. Atrial fibrillation. 9. Indulin-dependent diabetes mellitus. 10. Peripheral vascular disease. 11. Permanent pacemaker placement. PAST SURGICAL HISTORY 1. Cholecystectomy. 2. Hand surgery. 3. Tubal ligation. SOCIAL HISTORY Quit smoking in 2006, no drug or alcohol abuse. FAMILY HISTORY Coronary artery disease. MEDICATION As per MAR, has been reviewed. ALLERGIES Have been reviewed. Unit #: [id number] #: [id number] Patient: MICHELLE DUNHAM PHYSICAL EXAMINATION VITAL SIGNS: Temperature 98. Pulse 59. Respiration 16. Blood pressure 159/71. NEUROLOGICAL: Awake, alert and oriented. No neuro deficit. HEENT: PERRLA plus EOMI. NECK: Supple. No JVD. CHEST: Bilateral air entry. Bilateral mild rhonchi. GI: Nontender, soft, bowel sounds positive. EXTREMITIES: No edema. DIAGNOSTIC STUDIES LABORATORY: Labs have been reviewed. IMAGING: Has been reviewed. Chest x-ray showed low lung volume and no infiltrate. ASSESSMENT 1. Dyspnea. 2. History of pulmonary embolism. 3. History of deep venous thrombosis. 4. Anxiety disorder. 5. Chronic obstructive pulmonary disease. 6. Insulin-dependent diabetes mellitus. 7. Hypertension. PLAN Plan is to get a CT chest, is already ordered, will follow the results. Continue bronchodilator. Continue home medication. GI and DVT prophylaxis. Continue anticoagulation. Please see orders for detailed plan. Thank you very much for this consultation. Dictated by... Jesse Foster TD: 11/26/2016 22:37 JOB #: [id number] CONSULTATION REPORT Page 1 of 1 X Analisa Delgado MD X CONSULTATION REPORT
--- NOTE | ~2016-11-25 | EKG ---
PATIENT: MICHELLE DUNHAM UNIT #: [id number] Ventricular Rate: 70 BPM Atrial Rate: 70 BPM P-R Interval: 184 ms QRS Duration: 106 ms Q-T Interval: 448 ms QTC Calculation(Bezet): 483 ms P [place]: 31 degrees Calculated R [place]: -40 degrees Calculated T [place]: 66 degrees Diagnosis Line: Normal sinus rhythm Diagnosis Line: Left axis deviation Diagnosis Line: Lateral infarct , age undetermined Diagnosis Line: Abnormal ECG Diagnosis Line: Diagnosis Line: Confirmed by STEVEN SPARKS MD ([id number]) on Diagnosis Line: 12/04/2016 8:28:02 AM INTERPRETING MD: BRIDGER MARR
--- NOTE | ~2016-11-25 | DS ---
Unit #: [id number] #: [id number] Patient: MICHELLE DUNHAM [id number] [facility] [address] [facility]. [place], [place] [address] [id number] I MR#: [id number] NAME: MICHELLE DUNHAM ROOM: 301 Age: 65 Sex: F Admission Date: 11/26/2016 : 1950 Discharge Date: 11/27/2016 Attending Physician: Zoe Rich M.D. Primary Care Physician: Kaiser Veliz M.D. DISCHARGE SUMMARY SHORT STAY SUMMARY DIAGNOSIS ON ADMISSION Shortness of air. DIAGNOSES ON DISCHARGE 1. Acute viral bronchitis. 2. History of pulmonary embolism and deep venous thrombosis. 3. Hypertension. 4. Coronary artery disease, status post stent. 5. Congestive heart failure. 6. End-stage renal disease, on hemodialysis. 7. Insulin-dependent diabetes mellitus. 8. Chronic obstructive pulmonary disease. HOSPITAL COURSE A 65-year-old female was admitted to [facility] from [facility] Room with cough and shortness of air. Details are as per admission History and Physical. Patient was seen by Pulmonary in consultation, who thought patient is having viral bronchitis. They recommended that patient does not need a CT angiogram of the chest because she is already on Eliquis. They advised her to follow up with them on an outpatient basis for further workup. Patient was also seen by Renal and will have hemodialysis tomorrow as scheduled. Today, patient is comfortable and is anxious to go home. Therefore, we will discharge her home. Please note that patient also had a left lower extremity venous Doppler done which did not reveal any evidence of DVT. RECOMMENDATIONS ON DISCHARGE 1. Patient was advised to continue her home medications. Please note that we did not make any change in patient's home medications which are as per admission History and Physical and medication reconciliation form. Please note that patient's only new medication is hydralazine 25 mg p.o. t.i.d. ordered by Dr. Peña. 2. She was advised to follow up with her primary care physician in one week, with Renal as scheduled, and with Pulmonary in two weeks. 1. Dictated by... Unit #: [id number] #: [id number] Patient: MICHELLE DUNHAM M.D. MB/am TD: 11/27/2016 15:00 JOB #: [id number] CC: Jesse Jordan M.D. DISCHARGE SUMMARY Page 1 of 1 X Zoe Rich MD X DISCHARGE SUMMARY
--- NOTE | ~2016-11-25 | CO ---
Unit #: [id number] #: [id number] Patient: MICHELLE DUNHAM [id number] [facility]. [place], [place] [address] [id number] I MR#: [id number] NAME: MICHELLE DUNHAM ROOM: 301 Age: 65 Sex: F Admission Date: 11/26/2016 : 1950 Attending Physician: Zoe Rich M.D. Primary Care Physician: Kaiser Veliz M.D. Consultation Date: 11/26/2016 CONSULTATION REPORT REASON FOR CONSULTATION Dialysis needs. HISTORY OF PRESENT ILLNESS Ms. Dunham is a 65-year-old female, very well known to our service, who was started on dialysis over the last few months and came into the emergency room with complaint of dry cough for the last several weeks. The cough apparently gotten bad enough that she was unable to complete her dialysis treatment this past Friday and presumably left above her dry weight. This cough was nonresponsive to some antibiotics as an outpatient. She eventually developed shortness of breath, presenting to the emergency room. She was found to have hypertensive urgency and we were called for dialysis. I am currently seeing her in the dialysis unit at [facility]'s currently and she is feeling better as far as her breathing is concerned. She is tolerating her fluid removal well and blood pressure has come down to the 150s. PAST MEDICAL HISTORY Significant for end-stage renal disease, hypertension, diabetes, coronary artery disease with stenting, congestive heart failure, atrial fibrillation, mitral regurgitation, COPD, pulmonary hypertension, history of DVT and PE in the past, gastritis, peripheral vascular disease. PAST SURGICAL HISTORY She has had a right [id number] amputation, left foot amputation, right arm fistula, right chest dialysis catheter, pacemaker, tubal ligation, carpal tunnel surgery, cholecystectomy, wrist surgery, breast surgery, and skin cancer removal. HOME MEDICATIONS According to the discharge summary from last admission are as follows: She was on Xanax 0.5 mg p.o. t.i.d., Isordil 10 mg b.i.d., Eliquis 2.5 mg b.i.d., Coreg 12.5 mg b.i.d., amiodarone 200 mg a day, Flomax 0.4 mg daily, Symbicort inhaler b.i.d., Humulin 70/30 20 units b.i.d., Bumex 1 mg p.o. t.i.d., PhosLo t.i.d., Pepcid 20 mg b.i.d., [place] p.r.n., and Lipitor 20 mg daily. ALLERGIES Sulfa, lisinopril, codeine, oxycodone, propoxyphene, pentazocine, nitrofurantoin, Cipro, Demerol, protamine, and Phenergan. FAMILY HISTORY Significant for heart disease. No family history of kidney problems. Unit #: [id number] #: [id number] Patient: MICHELLE DUNHAM SOCIAL HISTORY She is a former smoker. No alcohol or drug abuse. REVIEW OF SYSTEMS A complete 12-point review of systems was completed with the above findings. In addition, she denies any headaches or dizziness on dialysis. No nosebleed, sore throat, or earache. No palpitations. No hematemesis. No bright red blood per rectum or melena. No hematuria. She does have some swelling in her left leg. No rashes. No itching. No flank pain. No fevers. No chills. No night sweats or hot flashes. No intolerance to heat or cold. No bleeding issues. Unless otherwise indicated, the review of systems was negative. PHYSICAL EXAMINATION VITAL SIGNS: The patient is afebrile, pulse 59, respiratory rate 19, blood pressure 159/71 was as high as 213/86. GENERAL: This is a 65-year-old female seen on dialysis resting in no acute distress. HEENT: Head is atraumatic and normocephalic. Eyes show pale conjunctivae with no scleral icterus. No nasal drainage or nosebleed. Oropharynx is moist with no thrush. NECK: Shows no rigidity. HEART: Bradycardic and regular with no gallop or rub appreciated. LUNGS: Without wheezing or rhonchi. Breathing is nonlabored. ABDOMEN: Soft and nontender. Bowel sounds are present. EXTREMITIES: The patient has +2 pitting edema below the knee bilaterally. She has a right dkztq-tws-jbsk amputation. SKIN: Without rashes. MUSCULOSKELETAL: No CVA tenderness to palpation. VASCULAR: She has a right arm fistula in place with good bruit and thrill. She has a right chest dialysis catheter. NEUROLOGIC: Cranial nerves are grossly intact. DIAGNOSTIC STUDIES IMAGING STUDIES: Chest x-ray was unremarkable. LABORATORY RESULTS: INR was 1.5. Chemistry this morning; sodium 128, potassium 4.7, chloride 93, bicarb 22, glucose 83, BUN 43, creatinine 4.2. Troponin, negative. Hemoglobin was 10.9 with a normal platelet count. ASSESSMENT/PLAN 1. End-stage renal disease. The patient was seen on dialysis. She is tolerating her treatment well with no cramps and no nausea. Blood flow through the catheter was excellent at 400. Ultrafiltration was set for 4600 without any issues. Her next dialysis will be unless we continue to have problems with her blood pressure. 2. Hypertensive urgency. This has already improved with fluid removal. I will add some p.r.n. hydralazine and place her on a fluid restriction. 3. Hyponatremia. This may be due to volume excess which she will need to work on being on dialysis. I will restrict her fluids to 1.2 L or less per day. 4. Anemia. Hemoglobin is a goal on dialysis. 5. History of deep vein thrombosis and pulmonary embolism, on blood thinner. 6. Chronic obstructive pulmonary disease with previous tobacco abuse. 7. Cough. Pulmonary has been asked to see. Nothing obvious on chest x-ray. 8. History of diabetes with peripheral vascular disease. Unit #: [id number] #: [id number] Patient: MICHELLE DUNHAM I would like to thank Dr. Rich for this consult and the opportunity to participate in evaluation and care of Ms. Dunham. Dictated by... Jorge Luis Simon Jr., M.D. ZAHIDA/debra TD: 11/28/2016 02:18 JOB #: [id number] CONSULTATION REPORT Page 1 of 1 X Jorge Luis Simon MD CONSULTATION REPORT
--- NOTE | ~2016-11-25 | CR72 ---
[facility]. [facility] A Service of [facility] & [facility] RADIOLOGY TEXT RESULTS PATIENT: MICHELLE DUNHAM LOCATION: [facility] 301-01 : [birth year] UNIT #: [id number] AGE: [address]: Zoe Rich MD SEX: F ORDER DR: [id number] [address] [address] [id number] I MR#: [id number] Acc #: [id number] NAME: MICHELLE DUNHAM : 1950 SEX: F STUDY DATE/TIME: 11/26/2016 0:04 UNIT: SEDOF ROOM: [facility] STUDY DESCRIPTION: CR Chest Single View Portable Attending Physician: Zoe Rich M.D. Ordering Physician: Jeronimo Méndez M.D. Primary Care Physician: Kaiser Veliz M.D. MEDICAL IMAGING REPORT This report is preliminary unless electronic signature is present. EXAM Portable chest. INDICATION Cough and shortness of air for two weeks. COMPARISON 11/25/2016. FINDINGS Portable view of the chest was obtained. There were low lung volumes. The heart size and vascularity are normal. Lungs are clear. The central venous catheter and pacemaker are stable. IMPRESSION No focal infiltrates are visible. There are low lung volumes. Dictated by... Hernando Mckinney M.D. THIS IS AN ELECTRONICALLY VERIFIED REPORT Hernando Mckinney M.D. at 11/26/2016 1:21 PM FEL/gz TD: 11/26/2016 09:52 JOB #: [id number] MEDICAL IMAGING REPORT Page 1 of 1
--- NOTE | ~2016-11-25 | US85 ---
[facility] A Service of [facility] RADIOLOGY TEXT RESULTS PATIENT: MICHELLE DUNHAM LOCATION: [facility] : 48 UNIT #: [id number] AGE: [address]: Zoe Rich MD SEX: F ORDER DR: [id number] [facility] [address] [place], [place] [address] [id number] MR#: [id number] Acc #: [id number] NAME: MICHELLE DUNHAM : 1950 SEX: F STUDY DATE/TIME: 11/27/2016 12:18 UNIT: [id number] ROOM: [facility] STUDY DESCRIPTION: US LE Veins Unilat or Ltd Stdy Attending Physician: Zoe Rich M.D. Ordering Physician: Mario Oneill Primary Care Physician: Kaiser Veliz M.D. MEDICAL IMAGING REPORT This report is preliminary unless electronic signature is present EXAM Left lower extremity venous duplex 11/27/2016 HISTORY Left lower extremity edema for 2 weeks with history of previous DVT in left lower extremity. TECHNIQUE Venous ultrasound examination of the eft lower extremity was performed using grayscale, spectral Doppler and color flow Doppler imaging. FINDINGS The examination is negative. There is no evidence of left lower extremity deep venous thrombus from the groin to the lower calf. Visualized greater saphenous vein is also patent. IMPRESSION Negative examination. No evidence of left lower extremity deep venous thrombosis. Dictated by... Cameron Loza M.D. THIS IS AN ELECTRONICALLY VERIFIED REPORT Cameron Loza M.D. at 11/28/2016 8:01 AM AMANDA/ambrocio TD: 11/27/2016 13:50 JOB #: [id number] [facility] A Service of [facility] RADIOLOGY TEXT RESULTS PATIENT: MICHELLE DUNHAM LOCATION: [facility] : 48 UNIT #: [id number] AGE: [address]: Zoe Rich MD SEX: F ORDER DR: MEDICAL IMAGING REPORT Page 1 of 1 COPY
[~2016-11-25 23:56] MED LIST changes: +AMIODARONE PO; +BUMEX1 MG PO; +CARVEDILOL12.5 MG PO; +PEPCID AC20 M2 PO; +PHOSLO667 M1 PO
[2016-11-26 01:06] LABS: BASOPHIL# 0.1 X10e3 (0-0.3); EOSINOPHIL# 0.1 X10e3 (0-0.7); EOSINOPHIL% 1.1 % (0.0-7.0); HEMATOCRIT 33.2 % (35.0-45.0); HEMOGLOBIN 10.9 gm/dL (12.0-16.0); LYMPHOCYTE# 1.2 X10e3 (1.0-3.5); LYMPHOCYTE% 13.8 % (17.0-45.0); MEAN CELL VOLUME 86.1 FL (83-96); MEAN CORPUSCULAR HEMOGLOBIN 28.2 PG (28-34); MEAN CORPUSCULAR HGB CONC 32.8 g/dL (30-36); MEAN PLATELET VOLUME 7.5 FL (6.5-11.5); MONOCYTE# 0.8 X10e3 (0-1.0); MONOCYTE% 9.1 % (3.0-12.0); NEUTROPHIL# 6.4 X10e3 (1.5-7.1); PLATELET COUNT 324 X10e3 (140-420); RED BLOOD COUNT 3.85 X10e (3.90-5.30); RED CELL DISTRIBUTION WIDTH 16.8 % (11.0-15.5); WHITE BLOOD COUNT 8.5 X10e3 (4.0-10.5)
[2016-11-26 01:14] LABS: DIFF IND NO
[2016-11-26 01:19] LABS: INR 1.5; PROTHROMBIN TIME (PATIENT) 17.2 SECONDS (9.5-12.4)
[2016-11-26 01:20] LABS: POC - CKMB 3.8 ng/mL (0.0-7.9)
[2016-11-26 01:21] LABS: POC - TROPONIN <0.05 ng/mL (<=0.05)
[2016-11-26 01:26] LABS: BUN/CREATININE RATIO 10.23; CREATININE SERUM 4.2 mg/dL (0.6-1.4); GLOM FILT RATE Estimated 10.3 mL/min (>60); POTASSIUM 4.7 mmol/L (3.5-5.1)
[2016-11-26 01:27] LABS: PARTIAL THROMBOPLASTIN TIME 38.3 SECONDS (25.6-38.1)
[2016-11-27 05:14] LABS: HEMATOCRIT 33.5 % (35.0-45.0); HEMOGLOBIN 10.8 gm/dL (12.0-16.0); MEAN CELL VOLUME 86.5 FL (83-96); MEAN CORPUSCULAR HEMOGLOBIN 27.8 PG (28-34); MEAN CORPUSCULAR HGB CONC 32.1 g/dL (30-36); MEAN PLATELET VOLUME 7.3 FL (6.5-11.5); RED BLOOD COUNT 3.88 X10e (3.90-5.30); WHITE BLOOD COUNT 5.1 X10e3 (4.0-10.5)
[2016-11-27 05:58] LABS: BUN/CREATININE RATIO 10.76; CALCIUM SERUM 8.8 mg/dL (8.4-10.2); CREATININE SERUM 2.6 mg/dL (0.6-1.4); GLOM FILT RATE Estimated 18.5 mL/min (>60); POTASSIUM 3.5 mmol/L (3.5-5.1)
== END 2016-11-27 18:00 | disposition home or self-care (01) | DRG 202 ==
LOC: SED 23:56 → CEDOF 11-26 03:55 → C3A PCU 11-26 03:55 → SED 11-26 03:55 → SEDOF 11-26 04:01 → SED 11-26 04:01 → CEDOF 11-26 04:01 → SEDOF 11-26 08:03 → C3A PCU 11-26 08:42
PROVIDERS: Emergency Medicine; Physician Assistant Medical
PROC: 5A1D00Z (ICD-10-PCS; principal; 2016-11-26)
DX: J20.8 Acute bronchitis due to other specified organisms (principal); N18.6 End stage renal disease; I13.2 Hypertensive heart and chronic kidney disease with heart failure and with stage 5 chronic kidney disease, or end stage renal disease; E11.22 Type 2 diabetes mellitus with diabetic chronic kidney disease; E87.1 Hypo-osmolality and hyponatremia; Z86.711 Personal history of pulmonary embolism; I25.10 Atherosclerotic heart disease of native coronary artery without angina pectoris; Z95.5 Presence of coronary angioplasty implant and graft; I50.9 Heart failure, unspecified; Z79.4 Long term (current) use of insulin; J44.9 Chronic obstructive pulmonary disease, unspecified; F41.9 Anxiety disorder, unspecified; K21.9 Gastro-esophageal reflux disease without esophagitis; E78.5 Hyperlipidemia, unspecified; Z86.718 Personal history of other venous thrombosis and embolism; Z89.511 Acquired absence of right leg below knee; Z89.432 Acquired absence of left foot; I73.9 Peripheral vascular disease, unspecified; Z87.891 Personal history of nicotine dependence; Z88.2 Allergy status to sulfonamides; Z88.5 Allergy status to narcotic agent; Z88.1 Allergy status to other antibiotic agents; Z88.8 Allergy status to other drugs, medicaments and biological substances; I16.0 Hypertensive urgency; D63.1 Anemia in chronic kidney disease; Z95.0 Presence of cardiac pacemaker
CPT/HCPCS: 36415; 71010; 80048; 82553; 82947; 84484; 85025; 85027; 85379; 85610; 85730; 93005; 93971; 94640; 96374; 99285; J2930